=== PATIENT | female | born 1970 | race African-American/Black ===

== ENCOUNTER 2016-12-25 16:11 | Emergency (ER) | payer OTHER ==
[2016-12-25 16:25] VITALS: BP 124/79; PULSE 83; TEMP 98.3; BMI 37.8
--- NOTE | 2016-12-25 16:28 | PDOC ---
Rapid Medical Evaluation Time Seen by Provider: 12/25/16 16:14 Medical Evaluation: Allergies Allergy/AdvReac Type Severity Reaction Status Date / Time aspirin AdvReac Verified 12/22/15 13:47 12/25/16 16:23 I have performed a brief in-person evaluation of this patient. Ms trotter is a 46 yo F h/o endometrial cancer s/p hysterectomy (7 years ago) presenting to the ER with a complaint of constant left axillary chest wall pain radiating to the left anterior chest pain which began yesterday. Described as tightness, Rated 10/10, No recent travel Symptoms worse with deep breath No trauma PMD: Dina Androne Pertinent physical exam findings: RRR Lungs CTA B/L Chest wall tendern to palpation I have ordered the following: cbc, cmp, pt/inr, trop ekg The patient will proceed to the ED for further evaluation. 12/25/16 16:28
[2016-12-25 17:07] LABS: BASOPHIL 0.7 % (0-2.0); EOSINOPHIL 2.3 % (0-4.5); MCH 27.9 pg (25.7-33.7); MEAN CELL VOLUME 84.6 fl (80-96); MEAN PLT VOLUME 10.9 fl (7.5-11.1); NEUTROPHILS 44.1 % (42.8-82.8); PLATELET COUNT 183 K/MM3 (134-434); RDW 14.5 % (11.6-15.6); WHITE BLOOD COUNT 5.9 K/mm3 (4.0-10.0)
[2016-12-25 17:32] LABS: INR 1.04 (0.82-1.09); PROTHROMBIN TIME (PATIENT) 11.5 SEC (9.98-11.88)
[2016-12-25 17:40] LABS: ALBUMIN 4.1 g/dl (3.4-5.0); ANION GAP 9 (8-16); BILIRUBIN,TOTAL 0.3 mg/dL (0.2-1.0); CALCIUM 9.3 mg/dL (8.5-10.1); CO2 29 mmol/L (21-32); CREATININE 0.9 mg/dL (0.55-1.02); GLUCOSE,RANDOM 85 mg/dL (74-106); SGOT/AST 28 U/L (15-37); SGPT/ALT 53 U/L (12-78); TOT PROT 7.7 g/dl (6.4-8.2)
[2016-12-25 17:42] LABS: ALK PHOS 98 U/L (45-117); TROPONIN I < 0.02 ng/ml (0.00-0.05)
--- NOTE | 2016-12-25 19:40 | PDOC ---
History of Present Illness - General Chief Complaint: Chest Pain Stated Complaint: CHEST PAIN/LT ARM PAIN Time Seen by Provider: 12/25/16 16:14 History Source: Patient - History of Present Illness Presenting Symptoms: Chest Pain Timing/Duration: reports: intermittent Severity/Quality: reports: mild Location: reports: substernal Chest Pain Radiation: reports: arms (left) Activities at Onset: reports: none Past History - Travel Traveled outside of the country in the last 30 days: No Close contact w/someone who was outside of country & ill: No - Past Medical History Allergies/Adverse Reactions: Allergies Allergy/AdvReac Type Severity Reaction Status Date / Time aspirin AdvReac Verified 12/25/16 16:26 Home Medications: Ambulatory Orders Pregabalin [Lyrica -] 50 mg PO BID 02/21/15 Topiramate [Topamax] 50 mg PO DAILY 12/18/15 Mag Carb/Al Hydrox/Alginic AC [Gaviscon Liquid] 30 ml PO PRN PRN #0 oral.susp Ranitidine HCl [Acid Cement Mixer Driver 150] 150 mg PO BID #0 tablet 04/20/16 Anemia: No Asthma: Yes Cancer: Yes (UTERINE) Cardiac Disorders: No CVA: No COPD: Yes (BRONCHITIS) CHF: No Dementia: No Diabetes: No GI Disorders: Yes (COLON POLYPS, DIVERTICULOSIS, GERD) Disorders: No HTN: No Hypercholesterolemia: No Liver Disease: No Seizures: No Thyroid Disease: No Other medical history: FIBROMYALGIA - Surgical History Abdominal Surgery: Yes Appendectomy: No Cardiac Surgery: No Cholecystectomy: No Lung Surgery: No Neurologic Surgery: No Orthopedic Surgery: Yes (CARPAL TUNNEL RELEASE X 2) - Psycho/Social/Smoking Cessation Hx Anxiety: No Suicidal Ideation: No Smoking Status: No Smoking History: Never smoked Number of Cigarettes Smoked Daily: 0 Information on smoking cessation initiated: No Hx Alcohol Use: No Drug/Substance Use Hx: No Substance Use Type: None Hx Substance Use Treatment: No Cardiac Specific PMH - Complaint Specific PMHX Pacemaker: No Review of Systems - Review of Systems Able to Perform ROS?: Yes Comments:: 12/25/16 20:56 CONSTITUTIONAL: Absent: fever, chills, diaphoresis, generalized weakness, malaise, loss of appetite HEENT: Absent: rhinorrhea, nasal congestion, throat pain, throat swelling, difficulty swallowing, mouth swelling, ear pain, eye pain, visual Changes CARDIOVASCULAR: +cp Absent: loss of consciousness, palpitations, irregular heart rate, peripheral edema RESPIRATORY: Absent: cough, shortness of breath, dyspnea with exertion, orthopnea, wheezing, stridor, hemoptysis GASTROINTESTINAL: Absent: abdominal pain, abdominal distension, nausea, vomiting, diarrhea, constipation, melena, hematochezia GENITOURINARY: Absent: dysuria, frequency, urgency, hesitancy, hematuria, flank pain, genital pain MUSCULOSKELETAL: Absent: myalgia, arthralgia, joint swelling SKIN: Absent: rash, itching, pallor HEMATOLOGIC/IMMUNOLOGIC: Absent: easy bleeding, easy bruising, lymphadenopathy, frequent infections ENDOCRINE: Absent: unexplained weight gain, unexplained weight loss, heat intolerance, cold intolerance NEUROLOGIC: Absent: headache, focal weakness or paresthesias, dizziness, unsteady gait, seizure, mental status changes, bladder or bowel incontinence PSYCHIATRIC: Absent: anxiety, depression, suicidal or homicidal ideation, hallucinations. Is the patient limited American proficient: No *Physical Exam - Vital Signs Last Vital Signs Temp Pulse Resp BP Pulse Ox 98.3 F 83 18 124/79 100 12/25/16 16:22 12/25/16 16:22 12/25/16 16:22 12/25/16 16:22 12/25/16 18:00 - Physical Exam Comments: 12/25/16 20:57 GENERAL: Well developed, well nourished. Awake and alert. No acute distress. HEENT: Normocephalic, atraumatic. PERRLA, EOMI. No conjunctival pallor. Sclera are non- icteric. Moist mucous membranes. Oropharynx is clear. NECK: Supple. Full ROM. No JVD. Carotid pulses 2+ and symmetric, without bruits. No thyromegaly. No lymphadenopathy. CARDIOVASCULAR: +breast bone pain on palp Regular rate and rhythm. No murmurs, rubs, or gallops. Distal pulses are 2+ and symmetric. PULMONARY: No evidence of respiratory distress. Lungs clear to auscultation bilaterally. No wheezing, rales or rhonchi. ABDOMINAL: Soft. Non-tender. Non-distended. No rebound or guarding. No organomegaly. Normoactive bowel sounds. MUSCULOSKELETAL Normal range of motion at all joints. No bony deformities or tenderness. No CVA tenderness. EXTREMITIES: No cyanosis. No clubbing. No edema. No calf tenderness. SKIN: Warm and dry. Normal capillary refill. No rashes. No jaundice. NEUROLOGICAL: Alert, awake, appropriate. Cranial nerves 2-12 intact. No deficits to light touch and temperature in face, upper extremities and lower extremities. No motor deficits in the in face, upper extremities and lower extremities. Normoreflexic in the upper and lower extremities. Normal speech. Toes are down- going bilaterally. Gait is normal without ataxia. PSYCHIATRIC: Cooperative. Good eye contact. Appropriate mood and affect. ED Treatment Course - LABORATORY CBC & Chemistry Diagram: 12/25/16 16:55 12/25/16 16:55 - ADDITIONAL ORDERS Additional order review: Laboratory Results 12/25/16 12/25/16 12/25/16 21:12 16:55 16:55 INR 1.04 Sodium 144 Potassium 4.2 Chloride 106 Carbon Dioxide 29 D Anion Gap 9 BUN 17 D Creatinine 0.9 Creat Clearance w eGFR > 60 Random Glucose 85 Calcium 9.3 Total Bilirubin 0.3 D AST 28 D ALT 53 D Alkaline Phosphatase 98 Creatine Kinase 163 193 H D CK-MB (CK-2) 2.455 Troponin I < 0.02 < 0.02 Total Protein 7.7 Albumin 4.1 12/25/16 16:55 RBC 4.77 MCV 84.6 MCHC 33.0 RDW 14.5 MPV 10.9 Neutrophils % 44.1 D Lymphocytes % 44.5 H Monocytes % 8.4 Eosinophils % 2.3 Basophils % 0.7 - Medications Given in the ED: ED Medications Discontinued Medications Generic Name Dose Route Start Last Admin Trade Name Freq PRN Reason Stop Dose Admin Naproxen 500 mg 12/25/16 19:42 12/25/16 20:30 Naprosyn - PO 12/25/16 19:43 500 mg ONCE ONE Administration Progress Note - Progress Note Progress Note: 46-year-old female presents to the emergency department complaining of left- sided 4/10 tight discomfort which intermittently radiates to the left elbow 5 days. Patient states the pain is exacerbated on touch and alleviated at rest. She denies any nausea/vomiting, fever/chills, neck pains, back pains, shortness of breath, abdominal pains, urinary symptoms, flank pains. Patient says she's had similar discomfort because she was diagnosed with fibromyalgia. 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
[2016-12-25] MEDS ORDERED: NAPROXEN 500 MG TABLET (FP) PO ONE (19:42)
[2016-12-25] MEDS ORDERED: NAPROXEN 500 MG TABLET (FP) ONE (20:23)
[2016-12-25 21:52] LABS: TROPONIN I < 0.02 ng/ml (0.00-0.05)
--- NOTE | 2016-12-27 11:19 | EKG ---
Test Reason : Blood Pressure : / mmHG Vent. Rate : 081 BPM Atrial Rate : 081 BPM P-R Int : 162 ms QRS Dur : 076 ms QT Int : 368 ms P-R-T Axes : 055 021 007 degrees QTc Int : 427 ms NORMAL SINUS RHYTHM ANTERIOR INFARCT , AGE UNDETERMINED ABNORMAL ECG WHEN COMPARED WITH ECG OF 22-DEC-2015 13:48, NO SIGNIFICANT CHANGE WAS FOUND Confirmed by SU SANTILLAN MD ([id number]) on 12/27/2016 11:18:52 AM Referred By: Confirmed By:SU SANTILLAN MD
== END 2016-12-25 22:13 | disposition home or self-care (01) ==
LOC: JER 16:11
DX: M94.0 Chondrocostal junction syndrome [Tietze] (principal); R07.89 Other chest pain; Z85.42 Personal history of malignant neoplasm of other parts of uterus; J45.909 Unspecified asthma, uncomplicated; M79.7 Fibromyalgia
CPT/HCPCS: 36415; 71020-TC; 80053; 82550; 82553; 84484; 85025; 85610; 93005; 93010; 99282-25

== ENCOUNTER 2018-01-13 17:38 | Emergency (ER) | payer OTHER ==
[2018-01-13 17:50] VITALS: BP 117/82; PULSE 82; TEMP 98; BMI 38.7
--- NOTE | 2018-01-13 17:51 | PDOC ---
Rapid Medical Evaluation Chief Complaint: Pain Time Seen by Provider: 01/13/18 17:48 Medical Evaluation: Allergies Allergy/AdvReac Type Severity Reaction Status Date / Time aspirin AdvReac Verified 12/25/16 16:26 01/13/18 17:48 I have performed a brief in-person evaluation of this patient. The patient presents with a chief complaint of: low abd pain since this morning , "stomach feels like it's burning", denies N/V/D, no urinary symptoms Pertinent physical exam findings: suprapubic tenderness I have ordered the following: labs, urine (hx of endometrial cancer, s/p full hysterectomy) The patient will proceed to the ED for further evaluation. Discharge Disposition - Diagnosis Suprapubic abdominal pain - Referrals - Patient Instructions - Post Discharge Activity
[2018-01-13 18:42] LABS: BASO % 0.9 % (0-2.0); EOS % 2.8 % (0-4.5); HEMATOCRIT 38.7 % (32.4-45.2); HEMOGLOBIN 12.8 GM/dL (10.7-15.3); LYMPH % 47.3 % (8-40); MCH 28.5 pg (25.7-33.7); MCHC 33.1 g/dl (32.0-36.0); MEAN PLT VOLUME 11.3 fl (7.5-11.1); MONO % 8.3 % (3.8-10.2); NEUT % 40.7 % (42.8-82.8); PLATELET COUNT 142 K/MM3 (134-434); RBC 4.49 M/mm3 (3.60-5.2); RDW 14.9 % (11.6-15.6); WHITE BLOOD COUNT 5.1 K/mm3 (4.0-10.0)
[2018-01-13 18:43] LABS: URINE APPEARANCE SLCLOUDY; URINE BILIRUBIN NEGATIVE (<2.0 mg/dL); URINE BLOOD NEGATIVE (NEGATIVE); URINE COLOR YELLOW; URINE GLUCOSE (UA) NEGATIVE (NEGATIVE); URINE KETONE NEGATIVE (NEGATIVE); URINE NITRITE NEGATIVE (NEGATIVE)
[2018-01-13 19:06] LABS: CHLORIDE 109 mmol/L (98-107); POTASSIUM 4.3 mmol/L (3.5-5.1); SODIUM 143 mmol/L (136-145)
[2018-01-13 19:12] LABS: ALK PHOS 88 U/L (45-117); ANION GAP 7 (8-16); BILIRUBIN,TOTAL 0.1 mg/dL (0.2-1.0); BLOOD UREA NITROGEN 13 mg/dL (7-18); CALCIUM 8.7 mg/dL (8.5-10.1); CO2 27 mmol/L (21-32); GLUCOSE,RANDOM 86 mg/dL (74-106); SGOT/AST 27 U/L (15-37); SGPT/ALT 77 U/L (12-78); TOT PROT 7.4 g/dl (6.4-8.2)
[2018-01-13 19:27] LABS: URINE LEUK ESTERASE 3+ (NEGATIVE); URINE PROTEIN 1+ (NEGATIVE)
--- NOTE | 2018-01-13 19:38 | PDOC ---
Attending Attestation - Resident Resident Name: Douglas Amaya - ED Attending Attestation I have performed the following: I have examined & evaluated the patient, The case was reviewed & discussed with the resident, I agree w/resident's findings & plan, Exceptions are as noted - Physicial Exam PE: 01/13/18 20:29 Physical Exam General Appearance: Yes: Appropriately Dressed. No: Apparent Distress, Intoxicated HEENT: positive: EOMI, JEFF, Normal ENT Inspection, Normal Voice, TMs Normal, Pharynx Normal. negative: Pale Conjunctivae, Photophobia, Scleral Icterus (R), Scleral Icterus (L) Neck: positive: Trachea midline, Normal Thyroid, Supple. negative: Tender, Rigid, Carotid bruit, Stridor, Lymphadenopathy (R), Lymphadenopathy (L), Thyromegaly Respiratory/Chest: positive: Lungs Clear, Normal Breath Sounds. negative: Chest Tender, Respiratory Distress, Accessory Muscle Use, Labored Respiration, RES, Crackles, Rales, Rhonchi, Stridor, Wheezing, Dullness Cardiovascular: positive: Regular Rhythm, Regular Rate, S1, S2. negative: Edema , JVD, Murmur, Bradycardia, Tachycardia Vascular Pulses: Dorsalis-Pedis (R): 2+, Doralis-Pedis (L): 2+ Gastrointestinal/Abdominal: positive: Normal Bowel Sounds, Flat, Soft. negative : Tender, Organomegaly, Pulsatile Mass, Increased Bowel Sounds, Decreased BS, Distended, Guarding, Rebound, Hernia, Hepatomegaly, Spleenomegaly Lymphatic: negative: Adenopathy, Tenderness Musculoskeletal: positive: Normal Inspection. negative: CVA Tenderness, Decreased Range of Motion Extremity: positive: Normal Capillary Refill, Normal Inspection, Normal Range of Motion, Pelvis Stable. negative: Tender, Pedal Edema, Swelling, Erythema Integumentary: positive: Normal Color, Dry, Warm. negative: Cyanotic, Erythema , Jaundice, Rash Neurologic: positive: toll operator II-XII NML intact, Fully Oriented, Alert, Normal Mood/ Affect, Motor Strength 5/5. negative: EOM Palsy, Facial Droop, Sensory Deficit <Gm Bauer - Last Filed: 01/13/18 20:28> - HPI HPI: 01/13/18 23:03 Patient is a 47 year old female with a significant past medical history of Fibromyalgia, Asthma, Uterine CA, COPD, Colon polyps, Diverticulitis, Gerd, who presents to the ED with complaints of lower abdominal pain that began this morning. Patient reports experiencing gradually diffuse abdominal pain that she states is a burning pain. She reports experiencing subjective fever and chills. Patient state she is currently experiencing head cold. Denies chest pain, Sob. Denies nausea, vomiting. Denies contact with sick individuals, out of state travelling. Denies any other symptoms. Allergies: None Social history: No smoking. No alcohol. No illicit drugs. Surgical history: Carpal tunnel release x2, Abdominal surgery. PMD: Dr. Dina Simeon <Constantine Crook - Last Filed: 01/13/18 23:03>
[2018-01-13] MEDS ORDERED: CEPHALEXIN MONOHYDRATE 500 MG CAPSULE (UD) PO ONE (19:45)
--- NOTE | 2018-01-13 19:53 | PDOC ---
History of Present Illness - General Chief Complaint: Pain Stated Complaint: ABDOMINAL PAIN Time Seen by Provider: 01/13/18 17:48 History Source: Patient Exam Limitations: No Limitations - History of Present Illness Initial Comments: 01/13/18 19:47 Patient is a 47F with history of endometrial cancer 8 yrs ago s/p hysterectomy and radiation, and fibromyalgia here today complaining 1 day of lower abdominal pain that she describes as a burning. She endorses subjective fevers, and chills. Denies nausea and vomiting. Last bowel movement was this morning, describes it as normal. Denies pain with urination. Denies vaginal pain, vaginal bleeding and discharge. Past History - Past Medical History Allergies/Adverse Reactions: Allergies Allergy/AdvReac Type Severity Reaction Status Date / Time No Known Allergies Allergy Verified 01/13/18 20:05 Home Medications: Ambulatory Orders Pregabalin [Lyrica -] 50 mg PO BID 02/21/15 Topiramate [Topamax] 50 mg PO DAILY 12/18/15 Mag Carb/Aluminum Hydrox/Algin [Gaviscon Liquid] 30 ml PO PRN PRN #0 oral.susp 04/20/16 Ranitidine HCl [Acid Employee Relations Assistant 150] 150 mg PO BID #0 tablet 04/20/16 Naproxen [Naprosyn -] 500 mg PO BID #14 tablet 12/25/16 Ciprofloxacin [Cipro (Restricted To Id)] 500 mg PO BID #14 tablet 01/13/18 Anemia: No Asthma: Yes Cancer: Yes (UTERINE) Cardiac Disorders: No CVA: No COPD: Yes (BRONCHITIS) CHF: No Dementia: No Diabetes: No GI Disorders: Yes (COLON POLYPS, DIVERTICULOSIS, GERD) Disorders: No HTN: No Hypercholesterolemia: No Liver Disease: No Seizures: No Thyroid Disease: No Other medical history: fibromialgia - Surgical History Abdominal Surgery: Yes (hysterectomy) Appendectomy: No Cardiac Surgery: No Cholecystectomy: No Lung Surgery: No Neurologic Surgery: No Orthopedic Surgery: Yes (CARPAL TUNNEL RELEASE X 2) - Suicide/Smoking/Psychosocial Hx Smoking Status: No Smoking History: Never smoked Number of Cigarettes Smoked Daily: 0 Hx Alcohol Use: No Drug/Substance Use Hx: No Substance Use Type: None Hx Substance Use Treatment: No Review of Systems - Review of Systems Comments:: 01/13/18 19:50 GENERAL/CONSTITUTIONAL: Positive for fever and chills. No weakness. HEAD, EYES, EARS, NOSE AND THROAT: No change in vision. No sore throat. CARDIOVASCULAR: No chest pain or shortness of breath RESPIRATORY: No cough, wheezing, or hemoptysis. GASTROINTESTINAL: No nausea, vomiting, diarrhea or constipation. GENITOURINARY: No dysuria, frequency, or change in urination. MUSCULOSKELETAL: No joint or muscle swelling or pain. No neck or back pain. SKIN: No rash NEUROLOGIC: No headache, vertigo, loss of consciousness, or change in strength/ sensation. ALLERGIC/IMMUNOLOGIC: No hives or skin allergy. *Physical Exam - Vital Signs Last Vital Signs Temp Pulse Resp BP Pulse Ox 98 F 82 18 117/82 99 01/13/18 17:48 01/13/18 17:48 01/13/18 17:48 01/13/18 17:48 01/13/18 17:48 - Physical Exam Comments: 01/13/18 19:51 GENERAL: Awake, alert, and fully oriented, in no acute distress HEAD: No signs of trauma, normocephalic, atraumatic EYES: PERRLA, EOMI, sclera anicteric, conjunctiva clear ENT: Auricles normal inspection, hearing grossly normal, nares patent, oropharynx clear without exudates. Moist mucosa NECK: Normal ROM, supple, no lymphadenopathy, JVD, or masses LUNGS: No distress, speaks full sentences, clear to auscultation bilaterally HEART: Regular rate and rhythm, normal S1 and S2, no murmurs, rubs or gallops, peripheral pulses normal and equal bilaterally. ABDOMEN: Soft, +suprapubic and left sided CVA tenderness. No guarding, no rebound. No masses EXTREMITIES: Normal inspection, Normal range of motion, no edema. No clubbing or cyanosis. NEUROLOGICAL: Cranial nerves II through XII grossly intact. Normal speech, no focal sensorimotor deficits SKIN: Warm, Dry, normal turgor, no rashes or lesions noted. ED Treatment Course - LABORATORY CBC & Chemistry Diagram: 01/13/18 18:11 01/13/18 18:11 - ADDITIONAL ORDERS Additional order review: Laboratory Results 01/13/18 01/13/18 18:20 18:11 Sodium 143 Potassium 4.3 Chloride 109 H Carbon Dioxide 27 Anion Gap 7 L BUN 13 Creatinine 1.0 Creat Clearance w eGFR 59.18 Random Glucose 86 Calcium 8.7 Total Bilirubin 0.1 L D AST 27 ALT 77 Alkaline Phosphatase 88 Total Protein 7.4 Albumin 4.0 Urine Color Yellow Urine Appearance Slcloudy Urine pH 5.0 Ur Specific [place] 1.029 Urine Protein 1+ H Urine Glucose (UA) Negative Urine Ketones Negative Urine Blood Negative Urine Nitrite Negative Urine Bilirubin Negative Urine Urobilinogen 2.0 H Ur Leukocyte Esterase 3+ H D 01/13/18 18:11 RBC 4.49 MCV 86.0 MCHC 33.1 RDW 14.9 MPV 11.3 H Neutrophils % 40.7 L Lymphocytes % 47.3 H Monocytes % 8.3 Eosinophils % 2.8 D Basophils % 0.9 Medical Decision Making - Medical Decision Making 01/13/18 19:51 47F here today with lower abdominal pain. DDx includes, but is not limited to: UTI, pyelo. 01/13/18 19:54 Laboratory Tests 01/13/18 01/13/18 01/13/18 18:11 18:11 18:20 WBC 5.1 Hgb 12.8 Hct 38.7 Plt Count 142 BUN 13 Creatinine 1.0 Ur Leukocyte Esterase 3+ H D CBC normal. Kidney function normal. CVA tenderness on exam not very impressive, but will treat as pyelonephritis. Will give cipro 500mg BID for 7 days. Will discharge with return precautions and PCP follow up. *DC/Admit/Observation/Transfer Diagnosis at time of Disposition: Pyelonephritis - Discharge Dispostion Disposition: HOME Condition at time of disposition: Good Admit: No - Prescriptions Prescriptions: Ciprofloxacin [Cipro (Restricted To Id)] 500 mg PO BID #14 tablet - Referrals Referrals: Dina Simeon [Primary Care Provider] - - Patient Instructions Printed Discharge Instructions: DI for Kidney Infection Additional Instructions: Please return if you have any new, worsening or concerning symptoms. Please call your primary care physician to be seen in the next week. - Post Discharge Activity
[2018-01-13 20:11] LABS: EPI CELLS FEW /HPF (FEW); URINE MUCUS FEW
[2018-01-13] MEDS ORDERED: CIPROFLOXACIN 500 MG TABLET (RESTRICTED TO ID) PO ONE (20:30)
== END 2018-01-13 20:41 | disposition home or self-care (01) ==
LOC: JER 17:38
DX: N12 Tubulo-interstitial nephritis, not specified as acute or chronic (principal); J45.909 Unspecified asthma, uncomplicated; J44.9 Chronic obstructive pulmonary disease, unspecified; Z87.19 Personal history of other diseases of the digestive system; Z85.42 Personal history of malignant neoplasm of other parts of uterus; Z90.710 Acquired absence of both cervix and uterus; M79.7 Fibromyalgia
CPT/HCPCS: 36415; 80053; 81003; 81015; 83690; 85025; 87086; 99281-25

== ENCOUNTER 2018-03-15 19:50 | Emergency (ER) | payer OTHER ==
[2018-03-15 19:56] VITALS: BP 141/87; PULSE 70; TEMP 97.9; BMI 37.8
[2018-03-15] MEDS ORDERED: ASPIRIN 81 MG CHEWABLE TABLETS PO ONE ×2 (21:28→21:31)
--- NOTE | 2018-03-15 21:28 | PDOC ---
History of Present Illness - General History Source: Patient Exam Limitations: No Limitations <Maryjo Ayala - Last Filed: 03/15/18 21:37> <Anuja Cole - Last Filed: 03/16/18 01:50> - General Chief Complaint: Chest Pain Stated Complaint: CHEST PAIN Time Seen by Provider: 03/15/18 21:18 - History of Present Illness Initial Comments: 03/15/18 21:36 The patient is a 48 year old female with a significant PMH of fibromyalgia and endometrial cancer 9 years ago s/p hysterectomy and radiation who presents to the emergency department with chest pain this morning. The patient describes the chest pain as sudden onset, localized on the left side of her chest with radiation to the back. The patient reports the chest pain has been constant since this morning and was a 9/10 at its worst. The patient denies exacerbating or alleviating factors. The patient reports having a stress test in [address] Landry (cardiology). The patient denies taking blood thinners. The patient denies leg swelling, shortness of breath, headache and dizziness. Denies fever, chills, nausea, vomit, diarrhea and constipation. Denies dysuria, frequency, urgency and hematuria. Allergies: NKA Past surgical history: total hysterectomy Social history: No reported alcohol, drug, or cigarette use. PCP: Dr. Dina Simeon Overhead Crane Inspector: Dr. Landry (Maryjo Ayala) Past History <Maryjo Ayala - Last Filed: 03/15/18 21:37> - Past Medical History Anemia: No Asthma: Yes Cancer: Yes (UTERINE) Cardiac Disorders: No CVA: No COPD: Yes (BRONCHITIS) CHF: No Dementia: No Diabetes: No GI Disorders: Yes (COLON POLYPS, DIVERTICULOSIS, GERD) Disorders: No HTN: No Hypercholesterolemia: No Liver Disease: No Seizures: No Thyroid Disease: No Other medical history: fibromyalgia - Surgical History Abdominal Surgery: Yes (hysterectomy) Appendectomy: No Cardiac Surgery: No Cholecystectomy: No Lung Surgery: No Neurologic Surgery: No Orthopedic Surgery: Yes (CARPAL TUNNEL RELEASE X 2) - Suicide/Smoking/Psychosocial Hx Smoking Status: No Smoking History: Never smoked Number of Cigarettes Smoked Daily: 0 Hx Alcohol Use: No Drug/Substance Use Hx: No Substance Use Type: None Hx Substance Use Treatment: No <Anuja Cole - Last Filed: 03/16/18 01:50> - Past Medical History Allergies/Adverse Reactions: Allergies Allergy/AdvReac Type Severity Reaction Status Date / Time No Known Allergies Allergy Verified 03/15/18 19:51 Home Medications: Ambulatory Orders Pregabalin [Lyrica -] 50 mg PO BID 02/21/15 Topiramate [Topamax] 50 mg PO DAILY 12/18/15 Mag Carb/Aluminum Hydrox/Algin [Gaviscon Liquid] 30 ml PO PRN PRN #0 oral.susp 04/20/16 Ranitidine HCl [Acid Draw End Hand 150] 150 mg PO BID #0 tablet 04/20/16 Naproxen [Naprosyn -] 500 mg PO BID #14 tablet 12/25/16 Ciprofloxacin [Cipro (Restricted To Id)] 500 mg PO BID #14 tablet 01/13/18 Cardiac Specific PMH - Complaint Specific PMHX Pacemaker: No <Anuja Cole - Last Filed: 03/16/18 01:50> Review of Systems - Review of Systems Able to Perform ROS?: Yes <Maryjo Ayala - Last Filed: 03/15/18 21:37> <Anuja Cole - Last Filed: 03/16/18 01:50> - Review of Systems Comments:: 03/15/18 21:35 CONSTITUTIONAL: Absent: fever, no chills, no fatigue EYES: Absent: visual changes ENT: Absent: ear pain, no sore throat CARDIOVASCULAR: Absent: no palpitations Present: chest pain. RESPIRATORY: Absent: cough, no SOB GI: Absent: abdominal pain, no nausea, no vomiting, no constipation, no diarrhea GENITOURINARY: Absent: dysuria, no frequency, no hematuria MUSKULOSKELETAL: Absent: back pain, no arthralgia, no myalgia SKIN: Absent: rash NEURO: Absent: headache (Maryjo Ayala) *Physical Exam <Maryjo Ayala - Last Filed: 03/15/18 21:37> <Anuja Cole - Last Filed: 03/16/18 01:50> - Vital Signs Last Vital Signs Temp Pulse Resp BP Pulse Ox 97.9 F 70 20 141/87 100 03/15/18 19:52 03/15/18 19:52 03/15/18 19:52 03/15/18 19:52 03/15/18 19:52 - Physical Exam Comments: 03/15/18 21:34 GENERAL: Well-appearing, well-nourished. No apparent distress. HEENT: Normocephalic, atraumatic. PERRL, EOM intact. CARDIOVASCULAR: Normal S1, S2. Regular rate and rhythm. (+) Musculoskeletal chest pain reproducible palpation. PULMONARY: Clear to auscultation bilaterally. ABDOMEN: Soft, non-distended, non-tender. EXTREMITIES: Normal ROM in all four extremities. No gross deformities. No pitting edema. SKIN: Warm, dry. No rash NEUROLOGICAL: No focal neurological deficits. (Maryjo Ayala) ED Treatment Course - LABORATORY CBC & Chemistry Diagram: 03/15/18 22:23 03/15/18 22:23 <Anuja Cole - Last Filed: 03/16/18 01:50> - ADDITIONAL ORDERS Additional order review: Laboratory Results 03/16/18 03/15/18 03/15/18 00:57 22:23 22:23 PT with INR 12.00 INR 1.06 Sodium 142 Potassium 4.0 Chloride 110 H Carbon Dioxide 27 Anion Gap 5 L BUN 13 Creatinine 1.0 Creat Clearance w eGFR 58.93 Random Glucose 89 Calcium 8.6 Magnesium 2.0 Total Bilirubin 0.2 D AST 15 ALT 22 Alkaline Phosphatase 89 Creatine Kinase 134 144 Troponin I < 0.02 < 0.02 B-Natriuretic Peptide 25.45 Total Protein 7.5 Albumin 4.0 03/15/18 22:23 RBC 4.46 MCV 85.4 MCHC 32.9 RDW 14.6 MPV 10.6 Neutrophils % 42.3 L Lymphocytes % 47.9 H Monocytes % 7.5 Eosinophils % 1.8 Basophils % 0.5 - RADIOLOGY Radiology Studies Ordered: Category Date Time Status CHEST PA & LAT [RAD] Stat Radiology 03/15/18 21:31 Taken - Medications Given in the ED: ED Medications Discontinued Medications Generic Name Dose Route Start Last Admin Trade Name Freq PRN Reason Stop Dose Admin Aspirin 162 mg 03/15/18 21:28 03/15/18 22:15 Asa - PO 03/15/18 21:29 162 mg ONCE ONE Administration Aspirin 162 mg 03/15/18 21:31 03/15/18 22:10 Asa - PO 03/15/18 21:32 Not Given ONCE ONE *DC/Admit/Observation/Transfer <Maryjo Ayala - Last Filed: 03/15/18 21:37> <Anuja Cole - Last Filed: 03/16/18 01:50> Diagnosis at time of Disposition: Atypical chest pain - Discharge Dispostion Disposition: HOME Condition at time of disposition: Stable - Referrals Referrals: Dina Simeon [Primary Care Provider] - - Patient Instructions Printed Discharge Instructions: DI for Atypical Chest Pain Additional Instructions: please follow up with your doctor this week return for worsening symptoms - Post Discharge Activity - Attestations Scribe Attestion: 03/15/18 21:35 Documentation prepared by Maryjo Ayala, acting as medical director/head team physician for Anuja Cole MD. (Maryjo Ayala)
[2018-03-15] MEDS ORDERED: ASPIRIN 81 MG CHEWABLE TABLETS ONE (22:18)
[2018-03-15 22:33] LABS: BASO % 0.5 % (0-2.0); EOS % 1.8 % (0-4.5); HEMOGLOBIN 12.5 GM/dL (10.7-15.3); LYMPH % 47.9 % (8-40); MCH 28.1 pg (25.7-33.7); MCHC 32.9 g/dl (32.0-36.0); MEAN CELL VOLUME 85.4 fl (80-96); MEAN PLT VOLUME 10.6 fl (7.5-11.1); MONO % 7.5 % (3.8-10.2); NEUT % 42.3 % (42.8-82.8); PLATELET COUNT 189 K/MM3 (134-434); RBC 4.46 M/mm3 (3.60-5.2); RDW 14.6 % (11.6-15.6); WHITE BLOOD COUNT 6.9 K/mm3 (4.0-10.0)
[2018-03-15 22:45] LABS: INR 1.06 (0.82-1.09)
[2018-03-15 22:55] LABS: ANION GAP 5 (8-16); BILIRUBIN,TOTAL 0.2 mg/dL (0.2-1.0); BLOOD UREA NITROGEN 13 mg/dL (7-18); CALCIUM 8.6 mg/dL (8.5-10.1); CHLORIDE 110 mmol/L (98-107); CO2 27 mmol/L (21-32); GLUCOSE,RANDOM 89 mg/dL (74-106); SGOT/AST 15 U/L (15-37); SGPT/ALT 22 U/L (12-78); SODIUM 142 mmol/L (136-145); TOT PROT 7.5 g/dl (6.4-8.2)
[2018-03-15 22:58] LABS: ALK PHOS 89 U/L (45-117); N-TERMINAL BNP 25.45 pg/ml (5-125)
[2018-03-15 23:32] LABS: PLATELET ESTIMATE ADEQUATE
--- NOTE | 2018-03-16 11:46 | EKG ---
Test Reason : Blood Pressure : / mmHG Vent. Rate : 070 BPM Atrial Rate : 070 BPM P-R Int : 150 ms QRS Dur : 076 ms QT Int : 368 ms P-R-T Axes : 053 026 024 degrees QTc Int : 397 ms NORMAL SINUS RHYTHM NORMAL ECG WHEN COMPARED WITH ECG OF 25-DEC-2016 16:33, NO SIGNIFICANT CHANGE WAS FOUND Confirmed by SHIRLEY ALVARES MD ([id number]) on 03/16/2018 11:46:23 AM Referred By: Confirmed By:SHIRLEY ALVARES MD
== END 2018-03-16 02:08 | disposition home or self-care (01) ==
LOC: JER 19:50
DX: R07.89 Other chest pain (principal); M79.7 Fibromyalgia; Z85.42 Personal history of malignant neoplasm of other parts of uterus; Z87.19 Personal history of other diseases of the digestive system; Z90.79 Acquired absence of other genital organ(s)
CPT/HCPCS: 36415; 71046-TC-FY; 80053; 82550; 83735; 83880; 84484; 85025; 85610; 93005; 93010; 99282-25

== ENCOUNTER 2018-07-11 07:46 | Day surgery (SDC) | payer OTHER ==
[2018-07-08 15:09] VITALS: BMI 42.1
[2018-07-11 09:16] VITALS: TEMP 97.8
[2018-07-11 09:56] VITALS: BP 115/86; PULSE 72
--- NOTE | 2018-07-12 18:20 | PATH ---
Surgical Pathology Report Patient Name: SHERLYN DAY [facility]. Rec. #: [id number] /Age/Gender: 1970 (Age: 48) / F Account: [id number] Location: U-ENDOSCOPY Taken: 07/11/2018 Received: 07/11/2018 Reported: 07/12/2018 Physicians: Rae Vasquez M.D. Specimen(s) Received A: BX ILEUM B: BX CECUM C: POLYP SIGMOID Clinical History Altered bowel habits, status post cervical cancer with radiation Final Diagnosis A. ILEUM, BIOPSY: ILEUM MUCOSA WITH NO DIAGNOSTIC ABNORMALITIES. THE ARCHITECTURE OF THE VILLI APPEARS NORMAL. B. CECUM, BIOPSY: COLONIC MUCOSA WITH REACTIVE LYMPHOID FOLLICLES. NO HISTOLOGIC EVIDENCE OF COLLAGENOUS COLITIS AND LYMPHOCYTIC COLITIS. C. SIGMOID POLYP, POLYPECTOMY: COLONIC MUCOSA WITH INCREASED FOAMY HISTIOCYTES IN THE LAMINA PROPRIA, MAY REPRESENT A XANTHOMA. Electronically Signed Lesli Good M.D. Gross Description A. Received in formalin, labeled "biopsy ileum" are multiple newman, irregular portions of soft tissue measuring 0.4 cm. in greatest dimension. The specimens are submitted in toto in one cassette. B. Received in formalin, labeled "biopsy cecum" are multiple newman, irregular portions of soft tissue measuring 0.4 cm. in greatest dimension. The specimens are submitted in toto in one cassette. C. Received in formalin, labeled "polyp sigmoid" is a nweman, irregular portion of soft tissue measuring 0.2 cm. in greatest dimension. The specimens are submitted in toto in one cassette. __ KWS/07/11/2018 sonia/07/11/2018
== END 2018-07-11 10:00 | disposition home or self-care (01) ==
LOC: JASU-ENDO 07:46
PROVIDERS: ATTEND Internal Medicine Gastroenterology
PROC: 0DBN8ZX Excision of Sigmoid Colon, Via Natural or Artificial Opening Endoscopic, Diagnostic (ICD-10-PCS; principal; 2018-07-11 09:00)
DX: K57.30 Diverticulosis of large intestine without perforation or abscess without bleeding (principal); R19.4 Change in bowel habit; Z86.010 Personal history of colon polyps; K63.5 Polyp of colon
CPT/HCPCS: 87045; 87046; 87177; 87209; 88305-TC

== ENCOUNTER 2018-10-26 18:50 | Emergency (ER) | payer OTHER ==
[2018-10-26] MEDS ORDERED: DIPHTH,PERTUSS(ACELL),TET 0.5 ML DISP.SYRIN IM ONE ×2 (19:03→20:17)
[2018-10-26] MEDS ORDERED: IBUPROFEN 400 MG TABLET (FP) PO ONE ×2 (19:03→20:17)
--- NOTE | 2018-10-26 19:03 | PDOC ---
Rapid Medical Evaluation Medical Evaluation: Allergies Allergy/AdvReac Type Severity Reaction Status Date / Time aspirin AdvReac Verified 07/08/18 15:06 I have performed a brief in-person evaluation of this patient. The patient presents with a chief complaint of: R foot pain after stepping on her eyeglasses yesterday; hx of fibromyalgia; unsure of last tetanus Pertinent physical exam findings: Puncture wound plantar surface of R foot I have ordered the following: Motrin, R foot xray, tdap The patient will proceed to the ED for further evaluation 10/26/18 19:02 Discharge Disposition - Discharge Dispostion Condition at time of disposition: Stable - Referrals Referrals: Dina Simeon [Primary Care Provider] - - Patient Instructions - Post Discharge Activity
[2018-10-26 19:04] VITALS: BP 130/69; PULSE 89; TEMP 98.4; BMI 39.4
--- NOTE | 2018-10-26 20:25 | PDOC ---
History of Present Illness - General Chief Complaint: Injury Stated Complaint: Laceration Time Seen by Provider: 10/26/18 19:02 - History of Present Illness Initial Comments: 10/26/18 20:21 48-year-old female with a past medical history significant for fibromyalgia presents for evaluation of a puncture wound on the plantar aspect of her right foot after stepping on glass is. She is not current on tetanus. That was updated today in the emergency room. She was not wearing a shoe at the time of the puncture 10/26/18 20:22 Past History - Past Medical History Allergies/Adverse Reactions: Allergies Allergy/AdvReac Type Severity Reaction Status Date / Time aspirin AdvReac Verified 07/08/18 15:06 Home Medications: Ambulatory Orders Pregabalin [Lyrica] 100 mg PO PRN PRN 05/13/18 Amox-Tr/K Cl [Augmentin - 875Mg Tablet] 1 tab PO BID #10 tablet 10/26/18 Anemia: No Asthma: Yes Cancer: Yes (UTERINE) Cardiac Disorders: No CVA: No COPD: Yes (BRONCHITIS) CHF: No Dementia: No Diabetes: No GI Disorders: Yes (COLON POLYPS, DIVERTICULOSIS, GERD) Disorders: No HTN: No Hypercholesterolemia: No Liver Disease: No Seizures: No Thyroid Disease: No - Surgical History Abdominal Surgery: Yes Appendectomy: No Cardiac Surgery: No Cholecystectomy: No Lung Surgery: No Neurologic Surgery: No Orthopedic Surgery: Yes (CARPAL TUNNEL RELEASE X 2) - Immunization History Immunization Up to Date: No - Suicide/Smoking/Psychosocial Hx Smoking Status: No Smoking History: Never smoked Have you smoked in the past 12 months: No Number of Cigarettes Smoked Daily: 0 Information on smoking cessation initiated: No Hx Alcohol Use: No Drug/Substance Use Hx: No Substance Use Type: None Hx Substance Use Treatment: No Review of Systems - Review of Systems Integumentary: Yes: See HPI *Physical Exam - Vital Signs Last Vital Signs Temp Pulse Resp BP Pulse Ox 98.4 F 89 18 130/69 100 10/26/18 19:02 10/26/18 19:02 10/26/18 19:02 10/26/18 19:02 10/26/18 19:02 - Physical Exam Comments: 10/26/18 20:21 Right foot skin color and temperature are normal. Range of motion is full. There is tenderness at the plantar aspect of the right foot with small puncture wound at the bottom of the foot. No gross sensory or motor deficits Moderate Sedation - Procedure Monitoring Vital Signs: Procedure Monitoring Vital Signs Temperature 98.4 F 10/26/18 19:02 Pulse Rate 89 10/26/18 19:02 Respiratory Rate 18 10/26/18 19:02 Blood Pressure 130/69 10/26/18 19:02 O2 Sat by Pulse Oximetry (%) 100 10/26/18 19:02 ED Treatment Course - Medications Given in the ED: ED Medications Discontinued Medications Generic Name Dose Route Start Last Admin Trade Name [place] PRN Reason Stop Dose Admin Diphtheria/Tetanus/Acell Pertussis 0.5 ml 10/26/18 19:03 10/26/18 20:20 Boostrix - IM 10/26/18 19:04 0.5 ml .ONCE ONE Administration Ibuprofen 800 mg 10/26/18 19:03 10/26/18 20:19 Motrin - PO 10/26/18 19:04 800 mg ONCE ONE Administration Medical Decision Making - Medical Decision Making 10/26/18 20:22 There is no radial opaque city on radiograph today we'll treat her with antibiotics and have her follow-up with orthopedic surgery. *DC/Admit/Observation/Transfer Diagnosis at time of Disposition: Puncture wound of foot - Discharge Dispostion Disposition: HOME Condition at time of disposition: Stable Decision to Admit order: No - Referrals Referrals: Dina Simeon [Primary Care Provider] - Garrett Kuo MD [Staff Physician] - - Patient Instructions Printed Discharge Instructions: DI for Puncture Wound Additional Instructions: He may weight-bear as tolerated with the use of the [place] shoe and crutches. Return to the emergency room should you have any further issues. Follow-up with orthopedic surgery in 1-2 days for further evaluation and treatment options. Please take the antibiotics as directed. - Post Discharge Activity
== END 2018-10-26 20:38 | disposition home or self-care (01) ==
LOC: JERFT 18:50
PROC: 3E0234Z Introduction of Serum, Toxoid and Vaccine into Muscle, Percutaneous Approach (ICD-10-PCS; principal; 2018-10-26)
DX: S91.331A Puncture wound without foreign body, right foot, initial encounter (principal); W22.8XXA Striking against or struck by other objects, initial encounter; Y93.89 Activity, other specified; Y92.89 Other specified places as the place of occurrence of the external cause
CPT/HCPCS: 73630-TC-RT-FY; 90471; 90715; 99281-25

== ENCOUNTER 2018-10-31 21:31 | Emergency (ER) | payer OTHER ==
--- NOTE | 2018-10-31 21:44 | PDOC ---
Rapid Medical Evaluation Chief Complaint: Nausea/Vomiting Time Seen by Provider: 10/31/18 21:39 Medical Evaluation: Allergies Allergy/AdvReac Type Severity Reaction Status Date / Time aspirin AdvReac Verified 07/08/18 15:06 10/31/18 21:39 Pt presents with two days of nausea and vomiting. Denies fever, chills, diarrhea , abdominal pain Exam: Ambulatory, NAD Orders: Labs, IV Pt to proceed to ED for further evaluation Discharge Disposition - Diagnosis Vomiting Qualifiers: Vomiting type: unspecified Vomiting Intractability: unspecified Nausea presence : unspecified Qualified Code(s): R11.10 - Vomiting, unspecified - Referrals Referrals: Dina Simeon [Primary Care Provider] - - Patient Instructions - Post Discharge Activity
[2018-10-31 21:55] VITALS: BMI 33.0
[2018-10-31] MEDS ORDERED: ONDANSETRON 4 MG/2 ML VIAL IVPUSH ONE (22:25)
[2018-10-31] MEDS ORDERED: SODIUM CHLORIDE 1,000 ML IV STA (22:25)
--- NOTE | 2018-10-31 22:25 | PDOC ---
History of Present Illness - General Chief Complaint: Nausea/Vomiting Stated Complaint: VOMITING Time Seen by Provider: 10/31/18 21:39 History Source: Patient Exam Limitations: No Limitations - History of Present Illness Initial Comments: Pt is a 48 yo F, with PMH of fibromyalgia, asthma/COPD, uterine CA (10 years ago with full hysterectomy), colyn polyps, diverticulitis, and GERD, who is presenting with complaints of nausea and NBNB emesis since yesterday morning. Pt states she has had vomiting multiple times today, and has not been tolerating any PO intake since yesterday. She has not eaten any new or raw foods. She complains of associated subjective chills and generalized abdominal pain, which began after the vomiting. Last BM was 2 days ago, and is still passing flatulence. Pt denies any headache, vision changes, syncope, chest pain , palpitations, SOB, urinary symptoms, diarrhea/constipation, or leg swelling. Social: Pt denies any cigarette, alcohol, or drug use. Pt denies any recent travel or sick contacts. Surgical: full hysterectomy (endometrial CA). Family: no relevant history. 10/31/18 23:30 Past History - Travel Traveled outside of the country in the last 30 days: No Close contact w/someone who was outside of country & ill: No - Past Medical History Allergies/Adverse Reactions: Allergies Allergy/AdvReac Type Severity Reaction Status Date / Time aspirin AdvReac Verified 10/31/18 21:43 Home Medications: Ambulatory Orders Ondansetron [Zofran Odt -] 4 mg SL BID PRN #14 od.tablet 11/01/18 Anemia: No Asthma: Yes Cancer: Yes (UTERINE) Cardiac Disorders: No CVA: No COPD: Yes (BRONCHITIS) CHF: No Dementia: No Diabetes: No GI Disorders: Yes (COLON POLYPS, DIVERTICULOSIS, GERD) Disorders: No HTN: No Hypercholesterolemia: No Liver Disease: No Seizures: No Thyroid Disease: No - Surgical History Abdominal Surgery: Yes Appendectomy: No Cardiac Surgery: No Cholecystectomy: No Lung Surgery: No Neurologic Surgery: No Orthopedic Surgery: Yes (CARPAL TUNNEL RELEASE X 2) - Immunization History Immunization Up to Date: No - Suicide/Smoking/Psychosocial Hx Smoking Status: No Smoking History: Never smoked Have you smoked in the past 12 months: No Number of Cigarettes Smoked Daily: 0 Information on smoking cessation initiated: No Hx Alcohol Use: No Drug/Substance Use Hx: No Substance Use Type: None Hx Substance Use Treatment: No Review of Systems - Review of Systems Able to Perform ROS?: Yes Is the patient limited Kiswahili proficient: No Constitutional: Yes: Chills, Malaise, Weight Stable. No: Diaphoresis, Fever, Weakness HEENTM: No: Blurred Vision, Double Vision, Nose Congestion, Throat Pain, Throat Swelling, Difficulty Swallowing Respiratory: No: Cough, Orthopnea, Shortness of Breath, Wheezing Cardiac (ROS): No: Chest Pain, Edema, Irregular Heart Rate, Lightheadedness, Palpitations, Syncope, Chest Tightness ABD/GI: Yes: See HPI, Nausea, Poor Appetite, Poor Fluid Intake, Vomiting, Abdominal cramping. No: Abdominal Distended, Blood Streaked Bowels, Constipated , Diarrhea, Rectal Bleeding, Indigestion, Tarry Stools : No: Burning, Dysuria, Frequency, Hematuria, Pain, Urgency Musculoskeletal: No: Back Pain, Joint Pain Integumentary: No: Rash Neurological: No: Headache, Seizure, Weakness, Unsteady Gait, Ataxia, Dizziness Psychiatric: No: Sleep Pattern Change, Change in Appetite Endocrine: No: Increased Urine, Change in Weight Hematologic/Lymphatic: No: Anemia, Blood Clots, Easy Bleeding, Easy Bruising All Other Systems: Reviewed and Negative *Physical Exam - Vital Signs Last Vital Signs Temp Pulse Resp BP Pulse Ox 99.4 F 110 H 22 H 113/76 98 10/31/18 21:37 10/31/18 21:37 10/31/18 21:37 10/31/18 21:37 10/31/18 21:37 - Physical Exam Comments: Pt with tachycardia (110) and low grade temperature (99.4). PE showed pt alert and oriented, appears ill/not feeling well, but NAD. 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 Oropharynx without exudate or erythema. No rhinorrhea or nasal congestion. Clear heart and lung sounds, no JVD, b/l pedal edema, or heart murmur. Mild tenderness to palpation over epigastric area , no rebound, no guarding. Abdomen is soft and protuberant, but non-distended. Hypoactive bowel sounds. No CVA tenderness. 10/31/18 23:35 Moderate Sedation - Procedure Monitoring Vital Signs: Procedure Monitoring Vital Signs Temperature 99.4 F 10/31/18 21:37 Pulse Rate 110 H 10/31/18 21:37 Respiratory Rate 22 H 10/31/18 21:37 Blood Pressure 113/76 10/31/18 21:37 O2 Sat by Pulse Oximetry (%) 98 10/31/18 21:37 ED Treatment Course - LABORATORY CBC & Chemistry Diagram: 10/31/18 22:55 10/31/18 22:55 Medical Decision Making - Medical Decision Making Pt was seen at bedside, also will be seen by attending Dr. Cole. Pt presenting with complaints of nausea and NBNB emesis since yesterday morning. Pt states she has had vomiting multiple times today, and has not been tolerating any PO intake since yesterday. She complains of associated subjective chills and generalized abdominal pain, which began after the vomiting. Last BM was 2 days ago, and is still passing flatulence. Pt denies any headache, vision changes, syncope, chest pain, palpitations, SOB, urinary symptoms, diarrhea/constipation, or leg swelling. Pt with tachycardia (110) and low grade temperature (99.4). PE showed pt alert and oriented. 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 Oropharynx without exudate or erythema. No rhinorrhea or nasal congestion. Clear heart and lung sounds, no JVD, b/l pedal edema, or heart murmur. Mild tenderness to palpation over epigastric area, no rebound, no guarding. Abdomen is soft and protuberant, but non-distended. Hypoactive bowel sounds. No CVA tenderness. Considering enteritis (bacterial/toxin vs viral) vs gastritis vs obstruction ( prior abdominal surgery) -- unlikely as pt had full hysterectomy done ; abdomen soft, no recent BMs likely due to decreased PO intake. R/o leukocytosis, electrolyte imbalances. Ordered work-up including CBC, CMP, lipase, influenza, ECG. Provided 1 g ofirmev (low grade temperature), 20 mg IV pepcid, 1 L IV NS and 4 mg IV zofran for improvement of fever/pain/vomiting. Will continue to reassess pt and monitor for symptomatic improvement. 10/31/18 23:07 CBC: leukopenia, WBC 3.7 (pt has been this level or lower in the past), otherwise WNL. 10/31/18 23:12 CMP WNL. Influenza A positive. Will continue to monitor pt for improvement after fluid hydration. 10/31/18 23:48 Sent 4 mg SL zofran to pt pharmacy for nausea. Will refrain from tamiflu, as we are at about the ~48 hour-rashawn, and pt already has nausea and vomiting. 11/01/18 00:17 Pt still nauseous, having some spitting up after interventions. Will provide 10 mg IV reglan and 25 mg PO benadryl and reassess. 11/01/18 00:45 Pt tolerating PO intake in the department. Considering normal lab results, pt can be discharged to home with follow-up. Pt advised to follow-up with PCP in 1-2 days. Strict return precautions provided with pt understanding. Advised pt to continue fluid hydration at home, and PO intake with bland diet as tolerated. 11/01/18 01:44 *DC/Admit/Observation/Transfer Diagnosis at time of Disposition: Influenza A Vomiting Qualifiers: Vomiting type: unspecified Vomiting Intractability: unspecified Nausea presence : unspecified Qualified Code(s): R11.10 - Vomiting, unspecified - Discharge Dispostion Disposition: HOME Condition at time of disposition: Improved Decision to Admit order: No - Prescriptions Prescriptions: Ondansetron [Zofran Odt -] 4 mg SL BID PRN #14 od.tablet PRN Reason: Nausea And/Or Vomiting - Referrals Referrals: Dina Simeon [Primary Care Provider] - - Patient Instructions Printed Discharge Instructions: DI for Influenza -- Adult Additional Instructions: You were seen in the ER today for nausea and vomiting. The results of your labs today showed influenza. Please follow-up with your primary care doctor within 1- 2 days to discuss your visit and make sure your symptoms have improved. Please return to the ER if you have any worsening pain, fevers or chills that does not improve with tylenol or ibuprofen, blood in your vomit or stool, loss of consciousness, inability to tolerate food or fluids, or any other concerns. You can continue to take ibuprofen and tylenol, every 4 hours, switching between the two medications. Please continue with fluid hydration at home, and bland foods (soup, gatorade) as tolerated. - Post Discharge Activity
[2018-10-31] MEDS ORDERED: FAMOTIDINE 20 MG/50 ML IVPB 20 MG/50 ML MG IVPB ONE ×2 (22:43→22:59)
[2018-10-31] MEDS ORDERED: ACETAMINOPHEN 1000 MG/100 ML VIAL (NON FORMULARY) IVPB ONE (22:44)
[2018-10-31] MEDS ORDERED: ACETAMINOPHEN INJECTION 100 ML IVPB ONE (22:58)
[2018-10-31] MEDS ORDERED: ONDANSETRON 4 MG/2 ML VIAL ONE (22:58)
[2018-10-31 23:01] LABS: BASO % 1.1 % (0-2.0); EOS % 0.1 % (0-4.5); HEMATOCRIT 40.5 % (32.4-45.2); HEMOGLOBIN 13.5 GM/dL (10.7-15.3); LYMPH % 46.6 % (8-40); MCH 28.6 pg (25.7-33.7); MCHC 33.3 g/dl (32.0-36.0); MEAN CELL VOLUME 85.6 fl (80-96); MEAN PLT VOLUME 10.9 fl (7.5-11.1); MONO % 12.8 % (3.8-10.2); NEUT % 39.4 % (42.8-82.8); PLATELET COUNT 159 K/MM3 (134-434); RBC 4.73 M/mm3 (3.60-5.2); RDW 14.5 % (11.6-15.6); WHITE BLOOD COUNT 3.7 K/mm3 (4.0-10.0)
--- NOTE | 2018-10-31 23:27 | PDOC ---
Attending Attestation - [facility] HPI: 10/31/18 23:52 The patient is a 48 year old female, with a significant past medical history of asthma, COPD, fibromyalgia, uterine cancer s/p hysterectomy 10 yrs ago, colon polyps, GERD, Diverticulosis, who presents to the emergency department today with nausea, vomiting, cough, generalized weakness. for two days. The patient reports numerous vomiting episodes, nonbloody and nonbilious, with associated epigastric pain following each episode. The patient reports the cough began a couple days ago. Patient also reports a nose bleed earlier today and nasal congestion. She denies recent dizziness or lightheadedness She denies recent constipation. She denies recent dysuria, frequency, urgency or hematuria. She denies recent chest pain or shortness of breath. Allergies: aspirin. Past surgical history: Abdominal surgery and carpal tunnel release x2. Social history: Nonsmoker. Denies EtOH use and recreational drug use. Primary Care Physician: Dr. Dina Simeon - Physicial Exam PE: 10/31/18 23:53 GENERAL: +low grade temperature. Well developed, well nourished. Awake and alert. No acute distress. HEENT: Normocephalic, atraumatic. PERRLA, EOMI. No conjunctival pallor. Sclera are non- icteric. Moist mucous membranes. Oropharynx is clear. NECK: Supple. Full ROM. No JVD. Carotid pulses 2+ and symmetric, without bruits. No thyromegaly. No lymphadenopathy. CARDIOVASCULAR: +slightly tachycardic. Regular rhythm. No murmurs, rubs, or gallops. Distal pulses are 2+ and symmetric. PULMONARY: No evidence of respiratory distress. Lungs clear to auscultation bilaterally. No wheezing, rales or rhonchi. ABDOMINAL: +protuberant belly. +epigastric discomfort. Soft. Non-tender. Non-distended. No rebound or guarding. No organomegaly. Normoactive bowel sounds. MUSCULOSKELETAL Normal range of motion at all joints. No bony deformities or tenderness. No CVA tenderness. EXTREMITIES: No cyanosis. No clubbing. No edema. No calf tenderness. SKIN: Warm and dry. Normal capillary refill. No rashes. No jaundice. NEUROLOGICAL: Alert, awake, appropriate. Cranial nerves 2-12 intact. No focal neurological deficits. Normal speech. Toes are down-going bilaterally. PSYCHIATRIC: Cooperative. Good eye contact. Appropriate mood and affect <Silvia Arriaza - Last Filed: 10/31/18 23:52> - Resident Resident Name: Narcisa Scott - ED Attending Attestation I have performed the following: I have examined & evaluated the patient, The case was reviewed & discussed with the resident, I agree w/resident's findings & plan, Exceptions are as noted - Medical Decision Making 11/01/18 00:41 pt found to be INFLUENZA A positive pt recieved IVF,anti emetics <Anuja Cole - Last Filed: 11/02/18 00:46> Attestations - Attestations 10/31/18 23:53 Documentation prepared by Silvia Arriaza, acting as biomedical instrument technician for Anuja Cole MD. <Silvia Arriaza - Last Filed: 10/31/18 23:52>
[2018-10-31 23:42] LABS: ALBUMIN 3.9 g/dl (3.4-5.0); ALK PHOS 89 U/L (45-117); ANION GAP 8 MMOL/L (8-16); BILIRUBIN,TOTAL 0.2 mg/dL (0.2-1); BLOOD UREA NITROGEN 13 mg/dL (7-18); CALCIUM 8.6 mg/dL (8.5-10.1); CHLORIDE 104 mmol/L (98-107); CO2 30 mmol/L (21-32); CREATININE 1.1 mg/dL (0.55-1.3); GLUCOSE,RANDOM 106 mg/dL (74-106); POTASSIUM 3.5 mmol/L (3.5-5.1); SGOT/AST 32 U/L (15-37); SGPT/ALT 38 U/L (13-61); SODIUM 143 mmol/L (136-145); TOT PROT 7.8 g/dl (6.4-8.2)
[2018-11-01] MEDS ORDERED: diphenhydrAMINE HCL 25 MG CAPSULE (FP) PO ONE ×3 (00:44→01:45)
[2018-11-01] MEDS ORDERED: METOCLOPRAMIDE HCL INJECTION 10 MG/2 ML VIAL IVPUSH ONE (00:44)
[2018-11-01] MEDS ORDERED: METOCLOPRAMIDE HCL INJECTION 10 MG/2 ML VIAL ONE (01:40)
[2018-11-01 04:25] VITALS: BP 126/76; PULSE 88; TEMP 98.5
--- NOTE | 2018-11-01 16:31 | EKG ---
Test Reason : Blood Pressure : / mmHG Vent. Rate : 090 BPM Atrial Rate : 090 BPM P-R Int : 150 ms QRS Dur : 078 ms QT Int : 360 ms P-R-T Axes : 070 061 019 degrees QTc Int : 440 ms NORMAL SINUS RHYTHM NORMAL ECG WHEN COMPARED WITH ECG OF 15-MAR-2018 19:56, NO SIGNIFICANT CHANGE WAS FOUND Confirmed by MD ROSSANA, DEREK ([id number]) on 11/01/2018 4:31:02 PM Referred By: Confirmed By:DEREK TRACY MD
== END 2018-11-01 04:25 | disposition home or self-care (01) ==
LOC: JER 21:31
PROC: 3E0337Z Introduction of Electrolytic and Water Balance Substance into Peripheral Vein, Percutaneous Approach (ICD-10-PCS; principal; 2018-10-31)
PROC: 3E033GC Introduction of Other Therapeutic Substance into Peripheral Vein, Percutaneous Approach (ICD-10-PCS; 2018-10-31)
PROC: 3E033GC Introduction of Other Therapeutic Substance into Peripheral Vein, Percutaneous Approach (ICD-10-PCS; 2018-10-31)
PROC: 3E033GC Introduction of Other Therapeutic Substance into Peripheral Vein, Percutaneous Approach (ICD-10-PCS; 2018-10-31)
PROC: 3E033GC Introduction of Other Therapeutic Substance into Peripheral Vein, Percutaneous Approach (ICD-10-PCS; 2018-10-31)
PROC: 3E033NZ Introduction of Analgesics, Hypnotics, Sedatives into Peripheral Vein, Percutaneous Approach (ICD-10-PCS; 2018-10-31)
DX: J09.X2 Influenza due to identified novel influenza A virus with other respiratory manifestations (principal); M79.7 Fibromyalgia; Z87.19 Personal history of other diseases of the digestive system; Z87.09 Personal history of other diseases of the respiratory system; Z85.42 Personal history of malignant neoplasm of other parts of uterus; Z90.710 Acquired absence of both cervix and uterus
CPT/HCPCS: 36415; 80053; 83690; 85025; 87804; 93005; 93010; 96361; 96365; 96375; 99282-25; J0131; J7030

== ENCOUNTER 2019-07-27 20:45 | Emergency (ER) | payer OTHER ==
[2019-07-27 20:51] VITALS: TEMP 99.4; BMI 37.8
--- NOTE | 2019-07-27 20:51 | PDOC ---
Rapid Medical Evaluation Time Seen by Provider: 07/27/19 20:49 Medical Evaluation: Allergies Allergy/AdvReac Type Severity Reaction Status Date / Time aspirin AdvReac Verified 10/31/18 21:43 07/27/19 20:49 I have performed a brief in-person evaluation of this patient. The patient presents with a chief complaint of: headache/lightheaded/nauseous since 330 pm, vaginal bleeding earlier today, full hysterectomy 10 years ago for hx endometrial cancer Pertinent physical exam findings: pale, uncomfortable appearing, tachy I have ordered the following: labs, urine, us The patient will proceed to the ED for further evaluation. Discharge Disposition - Diagnosis Vaginal bleeding - Referrals - Patient Instructions - Post Discharge Activity
[2019-07-27] MEDS ORDERED: ACETAMINOPHEN 1000 MG/100 ML VIAL (NON FORMULARY) IVPB ONE (21:19)
[2019-07-27] MEDS ORDERED: SODIUM CHLORIDE 1,000 ML IV STA (21:19)
[2019-07-27] MEDS ORDERED: METOCLOPRAMIDE HCL INJECTION 10 MG/2 ML VIAL IVPUSH ONE (21:26)
--- NOTE | 2019-07-27 21:39 | PDOC ---
History of Present Illness - General Chief Complaint: Headache Stated Complaint: HEADACHE/NAUSEA Time Seen by Provider: 07/27/19 20:49 History Source: Patient Exam Limitations: No Limitations - History of Present Illness Initial Comments: Ying Eddy is a 49 yo F w a pmh of fibromyalgia, asthma/COPD, uterine CA ( 10 years ago with full hysterectomy), colyn polyps, diverticulitis, and GERD who presents to the [facility] er with the chief complaint of a headache, nausea, abdominal pain, and vaginal bleeding. The patient states that around 3:30 pm today she began experiencing abdominal pain and then she noticed that a small amount of blood came out of her vagina. A few hours later she began feeling weak , lightheaded and developed a headache. She had a complete total hysterectomy for her endometrial cancer. She denies any focal weakness, numbness, tingling, or chills. Denies having any chest pain, SOB, difficulty breathing, personal or family hx of blood clots, leg pain or swelling. PCP: Dina Simeon PSH: ASH Social Hx: denies any cigarette, alcohol, or drug use. Allergies: NKA, NKDA Past History - Past Medical History Allergies/Adverse Reactions: Allergies Allergy/AdvReac Type Severity Reaction Status Date / Time No Known Allergies Allergy Verified 07/27/19 20:51 Home Medications: Ambulatory Orders Lyrica 100 mg PO PRN 11/21/18 Anemia: No Asthma: Yes Cancer: Yes (UTERINE) Cardiac Disorders: No CVA: No COPD: Yes (BRONCHITIS) CHF: No Dementia: No Diabetes: No GI Disorders: Yes (COLON POLYPS, DIVERTICULOSIS, GERD) Disorders: No HTN: No Hypercholesterolemia: No Liver Disease: No Seizures: No Thyroid Disease: No - Surgical History Abdominal Surgery: Yes Appendectomy: No Cardiac Surgery: No Cholecystectomy: No Lung Surgery: No Neurologic Surgery: No Orthopedic Surgery: Yes (CARPAL TUNNEL RELEASE X 2) - Immunization History Immunization Up to Date: No - Psycho Social/Smoking Cessation Hx Smoking Status: No Smoking History: Never smoked Have you smoked in the past 12 months: No Number of Cigarettes Smoked Daily: 0 Hx Alcohol Use: No Drug/Substance Use Hx: No Substance Use Type: None Hx Substance Use Treatment: No Review of Systems - Review of Systems Able to Perform ROS?: Yes Comments:: CONSTITUTIONAL: Present: generalized weakness, malaise Absent: fever, chills, diaphoresis, loss of appetite HEENT: Absent: rhinorrhea, nasal congestion, throat pain, throat swelling, difficulty swallowing, mouth swelling, ear pain, eye pain, visual Changes CARDIOVASCULAR: Present: Lightheadedness. Absent: chest pain, syncope, palpitations, irregular heart rate, peripheral edema RESPIRATORY: Absent: cough, shortness of breath, dyspnea with exertion, orthopnea, wheezing, stridor, hemoptysis GASTROINTESTINAL: Present: Abdominal pain, nausea Absent: abdominal distension, vomiting, diarrhea, constipation, melena, hematochezia GENITOURINARY: Present: hematuria/vaginal bleeding Absent: dysuria, frequency, urgency, hesitancy, flank pain, genital pain MUSCULOSKELETAL: Absent: myalgia, arthralgia, joint swelling SKIN: Absent: rash, itching, pallor HEMATOLOGIC/IMMUNOLOGIC: Absent: easy bleeding, easy bruising, lymphadenopathy, frequent infections ENDOCRINE: Absent: unexplained weight gain, unexplained weight loss, heat intolerance, cold intolerance NEUROLOGIC: Absent: headache, focal weakness or paresthesias, dizziness, unsteady gait, seizure, mental status changes, bladder or bowel incontinence PSYCHIATRIC: Absent: anxiety, depression, suicidal or homicidal ideation, hallucinations. *Physical Exam - Vital Signs Last Vital Signs Temp Pulse Resp BP Pulse Ox 99.4 F 116 H 18 133/88 100 07/27/19 20:49 07/27/19 20:49 07/27/19 20:49 07/27/19 20:49 07/27/19 20:49 - Physical Exam Comments: GENERAL: Well developed, well nourished. Awake and alert. Moderate distress. HEENT: Normocephalic, atraumatic. PERRLA, EOMI. Sclera are non-icteric. Moist mucous membranes. Oropharynx is clear. NECK: Supple. Full ROM. CARDIOVASCULAR: Tachycardic rate. regular rhythm. No murmurs, rubs, or gallops. Distal pulses are 2+ and symmetric. PULMONARY: No evidence of respiratory distress. Lungs clear to auscultation bilaterally. No wheezing, rales or rhonchi. ABDOMINAL: The abdomen is tense. There is diffuse discomfort in the lower abdomen. Normal bowel sounds. No rebound or guarding. MUSCULOSKELETAL Normal range of motion at all joints. No bony deformities or tenderness. No CVA tenderness. EXTREMITIES: No cyanosis. No clubbing. No edema. No calf tenderness. SKIN: Warm and dry. Normal capillary refill. No rashes. No jaundice. NEUROLOGICAL: Alert, awake, appropriate. Cranial nerves 2-12 intact. No deficits to light touch in face, upper extremities and lower extremities. No motor deficits in the in face, upper extremities and lower extremities. Normal speech. Gait is normal without ataxia. PSYCHIATRIC: Cooperative. Good eye contact. Appropriate mood and affect. ED Treatment Course - LABORATORY CBC & Chemistry Diagram: 07/27/19 22:01 07/27/19 22:01 Medical Decision Making - Medical Decision Making Ying Eddy is a 49 yo F w a pmh of fibromyalgia, asthma/COPD, uterine CA ( 10 years ago with full hysterectomy), colyn polyps, diverticulitis, and GERD who presents to the [facility] er with the chief complaint of a headache, nausea, abdominal pain, and vaginal bleeding. The patient states that around 3:30 pm today she began experiencing abdominal pain and then she noticed that a small amount of blood came out of her vagina. A few hours later she began feeling weak , lightheaded and developed a headache. She had a complete total hysterectomy for her endometrial cancer. She denies any focal weakness, numbness, tingling, or chills. Denies having any chest pain, SOB, difficulty breathing, personal or family hx of blood clots, leg pain or swelling. Vital Signs Temp Pulse Resp BP Pulse Ox 99.4 F 116 H 18 133/88 100 07/27/19 20:49 07/27/19 20:49 07/27/19 20:49 07/27/19 20:49 07/27/19 20:49 - Tachycardic DDx IBNLT: anemia, electrolyte/metabolic disturbance, endometrial ca metastasis , SBO, Migraine, dehydration, bladder pathology, vaginal pathology Plan: Labs, EKG, Urine, IV hydration, TVUS, CTAP, analgesia, re-assess. EKG: NS rate of 90, narrow complexes, normal axis, no hypertrophy, no ST elevations or depressions, TWI's in III, aVL, and v6, QTc 437, MN 164 Labs: Elevated LFT's, mild leukocytosis, mildly hyperglycemic - Will have patient follow up these results with her PCP Urine: Trace ketonuria, 1+ LE. NO BLOOD despite her saying she had vaginal bleeding. CTAP: Unremarkable, nothing that would explain this patient's present pain. - Handed her a copy of the CT read to discuss with her PCP Re-assessment: Patient feels better after analgesia and IV hydration and requests to be discharged. She says she no longer has a headache. Disposition: Home with pcp follow up. Discharge - Discharge Information Problems reviewed: Yes Clinical Impression/Diagnosis: Headache Qualifiers: Headache type: unspecified Headache chronicity pattern: acute headache Intractability: not intractable Qualified Code(s): R51 - Headache Abdominal pain Qualifiers: Abdominal location: right lower quadrant Qualified Code(s): R10.31 - Right lower quadrant pain Condition: Improved Disposition: HOME - Admission No - Follow up/Referral Referrals: Dina Simeon [Primary Care Provider] - - Patient Discharge Instructions Patient Printed Discharge Instructions: Acute Abdominal Pain Additional Instructions: You came into the ER with abdominal pain. We did a cat scna which did not show any acute problems. We handed you a copy of your cat scan to discuss with your primary care doctor this week. Please make sure to call up Dr. Simeon and discuss these cat scan results. Please also discuss that your liver enzymes are elevated. Come back to the ER if your pain worsens or you have any other new or worsening concerns. Take motrin/ibuprofen/tylenol as needed for pain control. Drink plenty of fluids. Come back to the ER if your pain worsens or you have any other new or worsening concerns. Thank you for coming to the [facility] ER. We hope you feel better soon! Print Language: TRINIDADIAN - Post Discharge Activity
[2019-07-27] MEDS ORDERED: METOCLOPRAMIDE HCL INJECTION 10 MG/2 ML VIAL ONE (21:51)
[2019-07-27] MEDS ORDERED: ACETAMINOPHEN INJECTION 100 ML IVPB ONE (21:52)
[2019-07-27 22:19] LABS: BASO % 0.4 % (0-2.0); EOS % 0.1 % (0-4.5); HEMATOCRIT 40.9 % (32.4-45.2); HEMOGLOBIN 13.5 GM/dL (10.7-15.3); LYMPH % 10.6 % (8-40); MCH 28.3 pg (25.7-33.7); MCHC 33.1 g/dl (32.0-36.0); MEAN CELL VOLUME 85.6 fl (80-96); MEAN PLT VOLUME 10.6 fl (7.5-11.1); MONO % 5.9 % (3.8-10.2); PLATELET COUNT 182 K/MM3 (134-434); RBC 4.78 M/mm3 (3.60-5.2); RDW 14.4 % (11.6-15.6); WHITE BLOOD COUNT 10.6 K/mm3 (4.0-10.0)
--- NOTE | 2019-07-27 22:22 | PDOC ---
Attending Attestation - Resident Resident Name: Heath Mejia - ED Attending Attestation I have performed the following: I have examined & evaluated the patient, The case was reviewed & discussed with the resident, I agree w/resident's findings & plan, Exceptions are as noted - HPI HPI: 07/28/19 03:59 49F pmh Asthma/COPD, uterine, endometrial CA s/p TAHBSO, GERD, fibromyalgia here with ALEJANDRO, nausea, abdominal pain. She also noted a small amount of blood from her vagina. Endorses headache, weakness. - Physicial Exam PE: 07/28/19 04:01 Agree with exam as documented by resident - Medical Decision Making 07/28/19 04:03 consider primary headache, gastritis, electrolyte derangement, mets f/u labs, imaging, ekg symptomatic treatment imaging negative for acute pathology pt endorses resolution of symptoms dc with pcp f/u
[2019-07-27 22:38] LABS: INR 1.15 (0.83-1.09); PROTHROMBIN TIME (PATIENT) 13.6 SEC (9.7-13.0)
[2019-07-27 22:44] LABS: EPI CELLS 3.3 /HPF (0-5/HPF); HYALINE CASTS 2 /lpf (0-8); URINE APPEARANCE CLEAR; URINE BACTERIA 75.7 /hpf (NEGATIVE); URINE BILIRUBIN NEGATIVE (NEGATIVE); URINE COLOR YELLOW; URINE GLUCOSE (UA) NEGATIVE (NEGATIVE); URINE KETONE TRACE (NEGATIVE); URINE LEUK ESTERASE 1+ (NEGATIVE); URINE NITRITE NEGATIVE (NEGATIVE); URINE PROTEIN 1+ (NEGATIVE); URINE UROBILINOGEN 0.2 mg/dL (0.2-1.0); URINE WBC 7 /hpf (0-5)
[2019-07-27 22:46] LABS: BILIRUBIN,TOTAL 0.2 mg/dL (0.2-1); BLOOD UREA NITROGEN 14.6 mg/dL (7-18); CALCIUM 9.1 mg/dL (8.5-10.1); CREATININE 1.2 mg/dL (0.55-1.3); POTASSIUM 4.1 mmol/L (3.5-5.1); TOT PROT 7.7 g/dl (6.4-8.2)
[2019-07-28 01:54] VITALS: BP 120/56; PULSE 84
--- NOTE | 2019-07-28 12:46 | EKG ---
Test Reason : Blood Pressure : / mmHG Vent. Rate : 090 BPM Atrial Rate : 090 BPM P-R Int : 164 ms QRS Dur : 078 ms QT Int : 358 ms P-R-T Axes : 059 033 023 degrees QTc Int : 437 ms NORMAL SINUS RHYTHM NONSPECIFIC T WAVE ABNORMALITY ABNORMAL ECG WHEN COMPARED WITH ECG OF 01-NOV-2018 00:52, NO SIGNIFICANT CHANGE WAS FOUND Confirmed by MURTAZA VILLALBA MD ([id number]) on 07/28/2019 12:45:57 PM Referred By: Confirmed By:MURTAZA VILLALBA MD
== END 2019-07-28 01:54 | disposition home or self-care (01) ==
LOC: JER 20:45
PROC: 3E033NZ Introduction of Analgesics, Hypnotics, Sedatives into Peripheral Vein, Percutaneous Approach (ICD-10-PCS; principal; 2019-07-27)
PROC: 3E033GC Introduction of Other Therapeutic Substance into Peripheral Vein, Percutaneous Approach (ICD-10-PCS; 2019-07-27)
DX: R51 Headache (principal); R10.31 Right lower quadrant pain; J44.9 Chronic obstructive pulmonary disease, unspecified; J45.998 Other asthma; Z87.19 Personal history of other diseases of the digestive system; Z85.42 Personal history of malignant neoplasm of other parts of uterus; Z90.710 Acquired absence of both cervix and uterus; Z90.79 Acquired absence of other genital organ(s); Z90.722 Acquired absence of ovaries, bilateral
CPT/HCPCS: 36415; 74177-TC; 80053; 81003; 83605; 83690; 84703; 85025; 85610; 86850; 86900; 86901; 87086; 93005; 93010; 99283-25; J0131; J7030

== ENCOUNTER 2022-09-22 12:53 | Inpatient (IN) | payer OTHER ==
[2022-09-22 13:30] VITALS: BMI 40.6
[2022-09-22] MEDS ORDERED: LACTATED RINGERS SOLUTION 1000 ML INFUS.BAG IV ONE (15:52)
[2022-09-22] MEDS ORDERED: PIPERACILLIN/TAZOB 4.5 GM 4.5 GM in DEXTROSE 5%-WATER 100 ML IVPB ONE (15:52)
[2022-09-22] MEDS ORDERED: VANCOMYCIN 1,000 MG in DEXTROSE 5%-WATER - 250 ML IVPB ONE (15:52)
[2022-09-22] MEDS ORDERED: ACETAMINOPHEN 1000 MG/100 ML BAG IVPB ONE (15:52)
[2022-09-22] MEDS ORDERED: ACETAMINOPHEN 325 MG TABLET (FP) PO PRN (16:03)
[2022-09-22] MEDS ORDERED: LIDOCAINE 5% TOPICAL PATCH TP SCH (16:15)
[2022-09-22] MEDS ORDERED: ACETAMINOPHEN INJECTION 100 ML IVPB ONE (17:22)
[2022-09-22] MEDS ORDERED: VANCOMYCIN 500 MG VIAL (RESTRICTED TO ID ONLY) ONE (17:22)
[2022-09-22] MEDS ORDERED: LIDOCAINE 5% TOPICAL PATCH ONE (17:22)
[2022-09-22] MEDS ORDERED: PIPERACILLIN/TAZOB 2.25 GM 2.25 GM/50 ML BAG IVPB ONE (17:22)
[2022-09-22 17:44] LABS: BASO % 1.2 % (0-2.0); EOS % 2.5 % (0-4.5); HEMATOCRIT 38.6 % (32.4-45.2); HEMOGLOBIN 12.7 GM/dL (10.7-15.3); LYMPH % 42.8 % (8-40); MCH 27.8 pg (25.7-33.7); MCHC 32.9 g/dl (32.0-36.0); MEAN CELL VOLUME 84.5 fl (80-96); MEAN PLT VOLUME 10.2 fl (7.5-11.1); MONO % 7.6 % (3.8-10.2); NEUT % 45.9 % (42.8-82.8); PLATELET COUNT 214 10^3/uL (134-434); RBC 4.57 M/mm3 (3.60-5.2); WHITE BLOOD COUNT 5.7 K/mm3 (4.0-10.0)
[2022-09-22 17:51] LABS: INR 1.11 (0.83-1.09); PROTHROMBIN TIME (PATIENT) 12.8 SEC (9.7-13.0)
[2022-09-22 17:54] LABS: ACTIVATED PTT 35.1 SECONDS (25.2-36.5)
[2022-09-22 18:04] LABS: BLOOD UREA NITROGEN 12.5 mg/dL (7-18); CALCIUM 9.1 mg/dL (8.5-10.1)
[2022-09-22 18:07] LABS: CREATININE 0.9 mg/dL (0.55-1.3)
[2022-09-22 18:09] LABS: BILIRUBIN,TOTAL 0.2 mg/dL (0.2-1); TOT PROT 7.9 g/dl (6.4-8.2)
[2022-09-22] MEDS ORDERED: PIPERACILLIN/TAZOB 4.5 GM 4.5 GM/100 ML BAG IVPB ONE (19:06)
[2022-09-22 20:01] LABS: ERYTHROCYTE SEDIMENTATION RATE 25 mm/hr (0-30)
[2022-09-22] MEDS ORDERED: LIDOCAINE PATCH REMOVAL MC SCH (22:00)
[2022-09-23] MEDS: HEPARIN NA (PORCINE) 5,000 UNITS/ML 1ML VIAL SQ SCH ×3 (03:54→21:57)
[2022-09-23] MEDS ORDERED: ACETAMINOPHEN 325 MG TABLET (FP) ONE (04:52)
[2022-09-23] MEDS ORDERED: PREGABALIN 100 MG CAPSULE PO SCH (10:00)
[2022-09-23] MEDS ORDERED: PREGABALIN 100 MG CAPSULE ONE (10:49)
[2022-09-23] MEDS ORDERED: HEPARIN NA (PORCINE) 5,000 UNITS/ML 1ML VIAL ONE (10:49)
[2022-09-23 18:56] VITALS: RESP 20
[2022-09-23 20:27] VITALS: BP 153/94; PULSE 74
[2022-09-23 20:43] VITALS: TEMP 98.5
== END 2022-09-23 22:54 | disposition left against medical advice (07) | DRG 552 ==
LOC: JER 12:53 → JERBED 17:35 → J8W 09-23 18:29
PROVIDERS: ADMIT Internal Medicine; ATTEND Internal Medicine
DX: M46.46 Discitis, unspecified, lumbar region (principal); M46.26 Osteomyelitis of vertebra, lumbar region; Z68.41 Body mass index [BMI] 40.0-44.9, adult; M06.9 Rheumatoid arthritis, unspecified; M79.7 Fibromyalgia; M47.816 Spondylosis without myelopathy or radiculopathy, lumbar region; E66.01 Morbid (severe) obesity due to excess calories; Z85.42 Personal history of malignant neoplasm of other parts of uterus
CPT/HCPCS: 0241U-QW; 36415; 72149-TC; 80053; 85025; 85610; 85651; 85730; 86140; 86850; 86900; 86901; 87040; 93005; 93010; 99285-25; A9579; J1644

== ENCOUNTER 2022-09-24 23:03 | Inpatient (IN) | payer OTHER ==
[2022-09-24 23:07] VITALS: BMI 40.6
[2022-09-25] MEDS ORDERED: VANCOMYCIN 1 GM in D5W (PRE-DOCKED) 1,000 MG/250 ML IVPB ONE (00:53)
[2022-09-25] MEDS ORDERED: CEFEPIME HCL/D5W 2 GM/50 ML BAG IVPB ONE (00:54)
[2022-09-25] MEDS ORDERED: CEFEPIME 2 GM/100 ML BAG IVPB ONE ×2 (01:10→16:58)
[2022-09-25 01:16] LABS: BASO % 1.2 % (0-2.0); EOS % 1.1 % (0-4.5); HEMATOCRIT 37.9 % (32.4-45.2); HEMOGLOBIN 12.4 GM/dL (10.7-15.3); LYMPH % 31.5 % (8-40); MCH 27.6 pg (25.7-33.7); MCHC 32.8 g/dl (32.0-36.0); MEAN CELL VOLUME 84.3 fl (80-96); MEAN PLT VOLUME 10.4 fl (7.5-11.1); MONO % 8.8 % (3.8-10.2); NEUT % 57.4 % (42.8-82.8); PLATELET COUNT 208 10^3/uL (134-434); RDW 14.7 % (11.6-15.6); WHITE BLOOD COUNT 6.8 K/mm3 (4.0-10.0)
[2022-09-25 01:23] LABS: INR 1.17 (0.83-1.09); PROTHROMBIN TIME (PATIENT) 13.5 SEC (9.7-13.0)
[2022-09-25 01:25] LABS: ACTIVATED PTT 34.1 SECONDS (25.2-36.5)
[2022-09-25] MEDS ORDERED: ACETAMINOPHEN 1000 MG/100 ML BAG IVPB ONE (01:28)
[2022-09-25] MEDS ORDERED: ACETAMINOPHEN INJECTION 100 ML IVPB ONE (01:29)
[2022-09-25 01:47] LABS: ALBUMIN 3.9 g/dl (3.4-5.0); CALCIUM 9.4 mg/dL (8.5-10.1)
[2022-09-25 01:48] LABS: BLOOD UREA NITROGEN 16.6 mg/dL (7-18)
[2022-09-25 01:50] LABS: CREATININE 0.9 mg/dL (0.55-1.3)
[2022-09-25 01:52] LABS: BILIRUBIN,TOTAL 0.2 mg/dL (0.2-1); TOT PROT 7.8 g/dl (6.4-8.2)
[2022-09-25] MEDS ORDERED: VANCOMYCIN/WATER FOR INJ (PEG) 1,000 MG/200 ML BAG IVPB ONE ×2 (02:34→16:52)
[2022-09-25] MEDS: LYRICA 100 MG PO SCH (10:48)
[2022-09-25 11:08] LABS: EPI CELLS 8 /uL (0-25.1); HYALINE CASTS 2 /uL (0-3.1); PH,URINE 5.5 (5.0-8.0); URINE APPEARANCE CLEAR; URINE BACTERIA 0 /uL (0-1359); URINE BILIRUBIN NEGATIVE (NEGATIVE); URINE COLOR YELLOW; URINE GLUCOSE (UA) NEGATIVE (NEGATIVE); URINE KETONE 2+ (NEGATIVE); URINE LEUK ESTERASE NEGATIVE (NEGATIVE); URINE NITRITE NEGATIVE (NEGATIVE); URINE PROTEIN 2+ (NEGATIVE); URINE RBC 17 /uL (0-23.9); URINE UROBILINOGEN 0.2 mg/dL (0.2-1.0); URINE WBC 5 /uL (0-25.8)
[2022-09-25] MEDS ORDERED: VANCOMYCIN 1,000 MG in DEXTROSE 5%-WATER - 250 ML IVPB SCH (16:30)
[2022-09-25] MEDS ORDERED: CEFEPIME 1 GM/100 ML BAG IVPB ONE (16:53)
[2022-09-25] MEDS: VANCOMYCIN/WATER FOR INJ (PEG) 1,000 MG/200 ML BAG IVPB SCH (16:56)
[2022-09-25] MEDS: CEFEPIME 2 GM in DEXTROSE 5%-WATER 100 ML IVPB SCH (16:58)
[2022-09-26] MEDS: CEFEPIME 2 GM in DEXTROSE 5%-WATER 100 ML IVPB SCH ×3 (02:29→18:23)
[2022-09-26] MEDS: VANCOMYCIN/WATER FOR INJ (PEG) 1,000 MG/200 ML BAG IVPB SCH ×2 (05:29→17:43)
[2022-09-26] MEDS ORDERED: ACETAMINOPHEN 1000 MG/100 ML BAG IVPB PRN (07:33)
[2022-09-26] MEDS ORDERED: ACETAMINOPHEN 1000 MG/100 ML BAG IVPB ONE (08:00)
[2022-09-26] MEDS: LYRICA 100 MG PO SCH (19:37)
[2022-09-27] MEDS: CEFEPIME 2 GM in DEXTROSE 5%-WATER 100 ML IVPB SCH ×3 (02:02→17:00)
[2022-09-27] MEDS: VANCOMYCIN/WATER FOR INJ (PEG) 1,000 MG/200 ML BAG IVPB SCH ×2 (05:46→17:55)
[2022-09-27 08:47] LABS: BASO % 0.7 % (0-2.0); EOS % 4.1 % (0-4.5); HEMATOCRIT 39.4 % (32.4-45.2); HEMOGLOBIN 12.7 GM/dL (10.7-15.3); LYMPH % 38.5 % (8-40); MCHC 32.2 g/dl (32.0-36.0); MEAN CELL VOLUME 83.7 fl (80-96); MEAN PLT VOLUME 11.1 fl (7.5-11.1); MONO % 9.2 % (3.8-10.2); NEUT % 47.5 % (42.8-82.8); PLATELET COUNT 230 10^3/uL (134-434); RBC 4.71 M/mm3 (3.60-5.2); RDW 14.9 % (11.6-15.6); WHITE BLOOD COUNT 5.4 K/mm3 (4.0-10.0)
[2022-09-27 09:17] LABS: ALBUMIN 3.7 g/dl (3.4-5.0); BLOOD UREA NITROGEN 17.1 mg/dL (7-18); CALCIUM 9.3 mg/dL (8.5-10.1)
[2022-09-27 09:22] LABS: BILIRUBIN,TOTAL 0.3 mg/dL (0.2-1); TOT PROT 7.7 g/dl (6.4-8.2)
[2022-09-27] MEDS: HEPARIN NA (PORCINE) 5,000 UNITS/ML 1ML VIAL SQ SCH (21:55)
[2022-09-27] MEDS ORDERED: ACETAMINOPHEN 1000 MG/100 ML BAG IVPB ONE (22:01)
[2022-09-28] MEDS: CEFEPIME 2 GM in DEXTROSE 5%-WATER 100 ML IVPB SCH ×3 (02:52→21:31)
[2022-09-28] MEDS: VANCOMYCIN/WATER FOR INJ (PEG) 1,000 MG/200 ML BAG IVPB SCH (05:25)
[2022-09-28] MEDS: HEPARIN NA (PORCINE) 5,000 UNITS/ML 1ML VIAL SQ SCH ×2 (09:53→21:32)
[2022-09-28] MEDS ORDERED: IBUPROFEN 100 MG/5 ML UNIT DOSE CUPS PO PRN (14:10)
[2022-09-28] MEDS ORDERED: ACETAMINOPHEN 325 MG TABLET (FP) PO PRN (14:10)
[2022-09-28] MEDS ORDERED: IBUPROFEN 200 MG TABLET PO PRN (14:13)
[2022-09-28] MEDS ORDERED: DAPTOMYCIN 600 MG in SODIUM CHLORIDE 50 ML IVPB SCH (15:30)
[2022-09-28 15:42] VITALS: RESP 18
[2022-09-28] MEDS: CLOTRIMAZOLE 1% CREAM TP SCH (21:32)
[2022-09-29] MEDS: CEFEPIME 2 GM in DEXTROSE 5%-WATER 100 ML IVPB SCH ×3 (02:09→17:21)
[2022-09-29] MEDS ORDERED: FAMOTIDINE 20 MG TABLET PO SCH (10:00)
[2022-09-29] MEDS ORDERED: DAPTOMYCIN 600 MG in SODIUM CHLORIDE 50 ML IVPB SCH ×2 (10:00→21:00)
[2022-09-29] MEDS: HEPARIN NA (PORCINE) 5,000 UNITS/ML 1ML VIAL SQ SCH (10:15)
[2022-09-29] MEDS: CLOTRIMAZOLE 1% CREAM TP SCH ×2 (10:15→12:25)
[2022-09-29 15:55] VITALS: BP 118/80; PULSE 93; TEMP 98
== END 2022-09-29 18:07 | disposition home health service (06) | DRG 552 ==
LOC: JER 23:03 → JERBED 09-25 02:38 → J8W 09-25 19:09
PROVIDERS: ADMIT Internal Medicine; ATTEND Internal Medicine
PROC: 009Y3ZX Drainage of Lumbar Spinal Cord, Percutaneous Approach, Diagnostic (ICD-10-PCS; principal; 2022-09-25)
PROC: 02HV33Z Insertion of Infusion Device into Superior Vena Cava, Percutaneous Approach (ICD-10-PCS; 2022-09-29)
PROC: B548ZZA Ultrasonography of Superior Vena Cava, Guidance (ICD-10-PCS; 2022-09-29)
DX: M46.46 Discitis, unspecified, lumbar region (principal); M46.26 Osteomyelitis of vertebra, lumbar region; M79.7 Fibromyalgia; M06.9 Rheumatoid arthritis, unspecified; Z85.42 Personal history of malignant neoplasm of other parts of uterus
CPT/HCPCS: 0241U-QW; 36415; 36569; 62287; 71045-TC-FY; 80053; 81003; 82550; 82553; 83605; 84484; 85025; 85610; 85651; 85730; 86140; 86480; 86850; 86900; 86901; 87040; 87070; 87076; 87086; 87102; 87116; 87205; 87206; 87210; 93005; 93010; 99285-25; G0480; J0878; J1644

== ENCOUNTER 2022-11-05 07:39 | Emergency (ER) | payer OTHER ==
[2022-11-05 07:50] VITALS: BMI 40.6
[2022-11-05 10:12] LABS: BASO % 0.7 % (0-2.0); EOS % 3.3 % (0-4.5); HEMATOCRIT 36.9 % (32.4-45.2); LYMPH % 36.7 % (8-40); MCH 27.3 pg (25.7-33.7); MCHC 32.6 g/dl (32.0-36.0); MEAN CELL VOLUME 83.8 fl (80-96); MEAN PLT VOLUME 11.4 fl (7.5-11.1); MONO % 9.4 % (3.8-10.2); NEUT % 49.9 % (42.8-82.8); PLATELET COUNT 189 10^3/uL (134-434); RBC 4.41 M/mm3 (3.60-5.2); RDW 14.9 % (11.6-15.6); WHITE BLOOD COUNT 5.4 K/mm3 (4.0-10.0)
[2022-11-05 10:37] LABS: ALBUMIN 3.9 g/dl (3.4-5.0); BLOOD UREA NITROGEN 15.2 mg/dL (7-18); CALCIUM 9.2 mg/dL (8.5-10.1)
[2022-11-05 10:41] LABS: CREATININE 1.1 mg/dL (0.55-1.3)
[2022-11-05 10:43] LABS: BILIRUBIN,TOTAL 0.3 mg/dL (0.2-1)
[2022-11-05 11:38] LABS: ERYTHROCYTE SEDIMENTATION RATE 9 mm/hr (0-30)
[2022-11-05 11:43] VITALS: BP 131/74; PULSE 70; RESP 95; TEMP 97.9
== END 2022-11-05 11:35 | disposition home or self-care (01) ==
LOC: JER 07:39
DX: T82.898A Other specified complication of vascular prosthetic devices, implants and grafts, initial encounter (principal)
CPT/HCPCS: 36415; 80053; 85025; 85651; 86140; 99283-25; G0480

== ENCOUNTER 2022-11-18 22:13 | Inpatient (IN) | payer OTHER ==
[2022-11-18 22:33] VITALS: BMI 40.6
[2022-11-19] MEDS ORDERED: KETOROLAC TROMETHAMINE 15 MG/ML VIAL IVPUSH ONE (00:36)
[2022-11-19] MEDS ORDERED: KETOROLAC TROMETHAMINE 15 MG/ML VIAL ONE (01:20)
[2022-11-19 01:48] LABS: BASO % 1.3 % (0-2.0); EOS % 3.5 % (0-4.5); HEMATOCRIT 30.8 % (32.4-45.2); HEMOGLOBIN 10.5 GM/dL (10.7-15.3); LYMPH % 38.7 % (8-40); MCH 28.2 pg (25.7-33.7); MEAN CELL VOLUME 82.9 fl (80-96); MEAN PLT VOLUME 10.3 fl (7.5-11.1); MONO % 10.6 % (3.8-10.2); NEUT % 45.9 % (42.8-82.8); PLATELET COUNT 156 10^3/uL (134-434); RBC 3.72 M/mm3 (3.60-5.2); RDW 14.8 % (11.6-15.6); WHITE BLOOD COUNT 4.7 K/mm3 (4.0-10.0)
[2022-11-19 01:55] LABS: INR 1.14 (0.83-1.09); PROTHROMBIN TIME (PATIENT) 13.2 SEC (9.7-13.0)
[2022-11-19 01:57] LABS: ACTIVATED PTT 32.5 SECONDS (25.2-36.5)
[2022-11-19 02:00] LABS: CALCIUM 8.7 mg/dL (8.5-10.1)
[2022-11-19 02:01] LABS: ALBUMIN 3.5 g/dl (3.4-5.0); BLOOD UREA NITROGEN 15.8 mg/dL (7-18)
[2022-11-19 02:06] LABS: BILIRUBIN,TOTAL 0.3 mg/dL (0.2-1)
[2022-11-19 03:09] LABS: N-TERMINAL BNP 59.9 pg/ml (5-125)
[2022-11-19] MEDS ORDERED: ACETAMINOPHEN 325 MG TABLET (FP) PO PRN (06:05)
[2022-11-19] MEDS ORDERED: IBUPROFEN 100 MG/5 ML UNIT DOSE CUPS PO PRN (06:05)
[2022-11-19] MEDS ORDERED: FAMOTIDINE 20 MG TABLET ONE (10:08)
[2022-11-19] MEDS: CLOTRIMAZOLE 1% CREAM TP SCH ×2 (11:21→23:21)
[2022-11-19] MEDS: FAMOTIDINE 20 MG TABLET PO SCH (12:48)
[2022-11-19] MEDS: ALBUTEROL SO4 2.5/IPRATROPIUM 0.5 INH SOL 3 ML VIAL.NEB. NEB SCH ×2 (14:23→20:23)
[2022-11-19] MEDS: HYDROCHLOROTHIAZIDE 12.5 MG CAPSULE (FP) PO SCH (14:51)
[2022-11-19] MEDS: CEFEPIME 2 GM in DEXTROSE 5%-WATER 100 ML IVPB SCH (15:27)
[2022-11-19] MEDS: VANCOMYCIN PREMIX 1.5 GM 1,500 MG/300 ML BAG IVPB SCH (21:20)
[2022-11-20] MEDS: CEFEPIME 2 GM in DEXTROSE 5%-WATER 100 ML IVPB SCH ×4 (00:03→23:09)
[2022-11-20] MEDS: VANCOMYCIN PREMIX 1.5 GM 1,500 MG/300 ML BAG IVPB SCH ×2 (08:02→20:36)
[2022-11-20] MEDS: ALBUTEROL SO4 2.5/IPRATROPIUM 0.5 INH SOL 3 ML VIAL.NEB. NEB SCH ×3 (08:34→19:33)
[2022-11-20] MEDS: FAMOTIDINE 20 MG TABLET PO SCH (09:02)
[2022-11-20] MEDS: HYDROCHLOROTHIAZIDE 12.5 MG CAPSULE (FP) PO SCH (09:02)
[2022-11-20] MEDS: CLOTRIMAZOLE 1% CREAM TP SCH ×2 (09:03→21:07)
[2022-11-20] MEDS ORDERED: REGADENOSON 0.4 MG/5 ML PRE-FILLED SYRINGE IVPUSH ONE ×2 (09:45→10:07)
[2022-11-21] MEDS: CEFEPIME 2 GM in DEXTROSE 5%-WATER 100 ML IVPB SCH ×5 (06:25→22:58)
[2022-11-21] MEDS: ALBUTEROL SO4 2.5/IPRATROPIUM 0.5 INH SOL 3 ML VIAL.NEB. NEB SCH ×3 (07:45→20:36)
[2022-11-21] MEDS: VANCOMYCIN PREMIX 1.5 GM 1,500 MG/300 ML BAG IVPB SCH (08:34)
[2022-11-21] MEDS: HYDROCHLOROTHIAZIDE 12.5 MG CAPSULE (FP) PO SCH (08:59)
[2022-11-21] MEDS: FAMOTIDINE 20 MG TABLET PO SCH (08:59)
[2022-11-21] MEDS: CLOTRIMAZOLE 1% CREAM TP SCH ×2 (09:00→21:56)
[2022-11-21 09:30] LABS: HEMATOCRIT 34.2 % (32.4-45.2); HEMOGLOBIN 11.6 GM/dL (10.7-15.3); MCH 28.2 pg (25.7-33.7); MEAN CELL VOLUME 83.2 fl (80-96); MEAN PLT VOLUME 10.8 fl (7.5-11.1); PLATELET COUNT 183 10^3/uL (134-434); RBC 4.11 M/mm3 (3.60-5.2); RDW 14.5 % (11.6-15.6); WHITE BLOOD COUNT 5.8 K/mm3 (4.0-10.0)
[2022-11-21 09:53] LABS: BLOOD UREA NITROGEN 18.4 mg/dL (7-18)
[2022-11-21 09:55] LABS: ALBUMIN 3.8 g/dl (3.4-5.0); CALCIUM 9.2 mg/dL (8.5-10.1)
[2022-11-21 09:58] LABS: CREATININE 1.2 mg/dL (0.55-1.3)
[2022-11-21 10:00] LABS: TOT PROT 7.6 g/dl (6.4-8.2)
[2022-11-21 10:14] LABS: BILIRUBIN,TOTAL 0.3 mg/dL (0.2-1)
[2022-11-21 10:47] LABS: ERYTHROCYTE SEDIMENTATION RATE 22 mm/hr (0-30)
[2022-11-22] MEDS: CEFEPIME 2 GM in DEXTROSE 5%-WATER 100 ML IVPB SCH ×2 (06:22→15:05)
[2022-11-22] MEDS: ALBUTEROL SO4 2.5/IPRATROPIUM 0.5 INH SOL 3 ML VIAL.NEB. NEB SCH ×3 (07:25→20:29)
[2022-11-22] MEDS: CLOTRIMAZOLE 1% CREAM TP SCH ×2 (09:38→21:47)
[2022-11-22] MEDS: FAMOTIDINE 20 MG TABLET PO SCH (09:40)
[2022-11-22] MEDS: HYDROCHLOROTHIAZIDE 12.5 MG CAPSULE (FP) PO SCH (09:41)
[2022-11-22] MEDS ORDERED: VANCOMYCIN/WATER 1,250 MG/250 ML BAG (RESTRICTED TO ID ONLY) IVPB SCH ×2 (10:00→14:30)
[2022-11-22 10:20] VITALS: RESP 18
[2022-11-22] MEDS: BUDESONIDE/FORMETEROL FUMARATE 160/4.5 mcg INHALER IH SCH ×2 (11:11→21:48)
[2022-11-23] MEDS: CEFEPIME 2 GM in DEXTROSE 5%-WATER 100 ML IVPB SCH ×2 (00:21→06:53)
[2022-11-23] MEDS: VANCOMYCIN/WATER 1,250 MG/250 ML BAG (RESTRICTED TO ID ONLY) IVPB SCH ×2 (01:57→13:12)
[2022-11-23] MEDS: ALBUTEROL SO4 2.5/IPRATROPIUM 0.5 INH SOL 3 ML VIAL.NEB. NEB SCH ×2 (07:35→14:14)
[2022-11-23] MEDS: HYDROCHLOROTHIAZIDE 12.5 MG CAPSULE (FP) PO SCH (09:15)
[2022-11-23] MEDS: CLOTRIMAZOLE 1% CREAM TP SCH (09:15)
[2022-11-23] MEDS: FAMOTIDINE 20 MG TABLET PO SCH (09:15)
[2022-11-23] MEDS: BUDESONIDE/FORMETEROL FUMARATE 160/4.5 mcg INHALER IH SCH (09:16)
[2022-11-23 14:33] VITALS: BP 128/94; PULSE 83; TEMP 97.7
== END 2022-11-23 17:04 | disposition home or self-care (01) | DRG 540 ==
LOC: JER 22:13 → JERBED 11-19 05:23 → J6S 11-19 11:35 → UNDODISOB 11-20 18:54 → OBSVTOIN 11-23 11:22
PROVIDERS: ADMIT Internal Medicine; ATTEND Internal Medicine
DX: M46.26 Osteomyelitis of vertebra, lumbar region (principal); Z68.41 Body mass index [BMI] 40.0-44.9, adult; R06.02 Shortness of breath; E66.9 Obesity, unspecified; I10 Essential (primary) hypertension; K21.9 Gastro-esophageal reflux disease without esophagitis; M79.7 Fibromyalgia; R51.9 Headache, unspecified
CPT/HCPCS: 0241U-QW; 36415; 70450-TC; 71045-TC-FY; 71275-TC; 78452-TC; 80053; 83880; 84484; 84703; 85025; 85027; 85379; 85610; 85651; 85730; 86140; 93005; 93010; 93017; 93306-TC; 93970-TC; 94640; 99285-25; A9502; G0378; G0480; J2785